=== PATIENT | male | born 2000 | race Caucasian/White ===

== ENCOUNTER 2022-03-03 16:26 | Inpatient (IN) ==
[2022-03-03 17:54] LABS: Basophils # (auto) 0.07 K/uL (0-0.2); Eosinophils # (auto) 0.12 K/uL (0-0.50); Eosinophils % (auto) 1.8 %; Hematocrit (blood only) 42.5 % (40.1-51.0); Immature Granulocytes # (auto) 0.01 K/uL (0.00-0.02); Immature Granulocytes % (auto) 0.1 %; Lymphocytes # (auto) 1.55 K/uL (1.2-3.4); Lymphocytes % (auto) 22.8 %; Mean Corpuscular Hemoglobin 30.4 pg (25.0-34.0); Mean Corpuscular Hgb Conc 35.3 g/dL (32.0-36.0); Mean Corpuscular Volume 86.2 fL (80.0-100.0); Monocytes # (auto) 0.42 K/uL (0.24-0.82); Monocytes % (auto) 6.2 %; Neutrophils # (auto) 4.62 K/uL (1.4-6.5); Neutrophils % (auto) 68.1 %; Platelet Count 352 K/uL (130-400); RDW Coefficient of Variation 12.9 % (11.5-14.5); RDW Standard Deviation 40.4 fL (36.4-46.3); Red Blood Count 4.93 M/uL (4.63-6.08); White Blood Count 6.79 K/ul (4.8-10.8)
[2022-03-03 18:12] LABS: Albumin Globulin Ratio 1.8 (0.9-2); BUN Creatinine Ratio 12.1 (10-20); Bilirubin,Total 0.8 mg/dl (0.2-1.0); Calcium 9.8 mg/dl (8.5-10.1); Est GFR (African American) 123.9 ml/min; Est GFR (Non-African American) 106.9 ml/min; Globulin 2.8 gm/dl (2.5-4.0); Potassium 3.9 mmol/L (3.5-5.1); Total Protein 7.8 gm/dl (6.0-8.3)
[2022-03-03 18:15] LABS: Acetaminophen < 3 ug/ml (10-30); Salicylate < 3.0 mg/dl (3.0-30)
--- NOTE | 2022-03-03 18:15 | Emergency Department Note ---
Impression & Plan Suicidal ideation ED Provider Note HISTORY OF PRESENT ILLNESS: Patient is a 21-year-old male presenting with suicidal ideation. He was seen by mobile crisis earlier this afternoon and had expressed suicidal ideation with a plan to shoot himself. He reportedly was going to be set up with outpatient resources. However, the patient thinks that the suicidal ideation thoughts are getting more persistent and occurring more frequently, prompting him to present to the emergency department for second opinion. He denies any homicidal ideation. He states that his plan that he has had for a while is to tie a string to a tree that will lead people to where he will be and shoot himself in the head. He reports that he has previously put a gun in his mouth "just to feel what it would feel like." He has had multiple medication changes of his antidepressant and antiemetics lytics in the last few months. He states he does not feel like his medications are helping. Denies any auditory or visual hallucinations. ROS: as above PHYSICAL EXAM: Patient is in no apparent distress on examination. He does seem withdrawn and makes poor eye contact. He has a flat affect. He does speak in full sentences and is interactive with examiner. MDM: - Vitals signs showed borderline tachycardia. - History obtained via patient. Patient presents with suicidal ideation with a plan. He wants to shoot himself in the head. He reports he does not think his medications have been working for him and "cannot get out of his head." Denies any prior suicide attempts in the past. - Chronic conditions affecting care: Anxiety and depression - Differential diagnoses include, but are not limited to: electrolyte ab normality; UTI; worsening depression - External medical records reviewed. Mobile crisis documentation reviewed. Patient was seen by mobile [facility] due to concern that his medications outpatient are not helping. He has reportedly had thoughts of wanting to shoot himself in a suicide attempt for a year but has never acted on it. He was set up with outpatient resources for his worsening depression - Laboratory workup interpreted by myself was grossly unremarkable. UA negative for infection. UDS positive for marijuana. COVID-negative. - Patient was medically cleared for inpatient psychiatric placement. 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 - Discussion was had with social sciences professor about patient's case and need for inpatient psychiatric admission. - Patient admitted to inpatient psychiatry service for further evaluation and management. ASSESSMENT AND PLAN: Diagnosis: suicidal ideation with plan Plan: admit to [address] [place] [address] Past Med/Surg History Social History Smoking Status: Current every day smoker Tobacco Type: Smokeless Tobacco (Dip or Chew) Feels Safe at Home: No Gender Identity: Male Home Meds Home Medications Medication Instructions Recorded Confirmed buspirone 30 mg tablet 30 mg PO BID 03/03/22 03/03/22 clonidine HCl 0.1 mg tablet 0.1 mg PO HS 03/03/22 03/03/22 lorazepam 0.5 mg tablet (Ativan) 0.5 mg PO BID PRN Anxiety 03/03/22 03/03/22 methylphenidate HCl 54 mg 54 mg PO QAM 03/03/22 03/03/22 tablet,extended release 24 hr (Concerta) ondansetron HCl 4 mg tablet 4 mg PO Q8H PRN Nausea 03/03/22 03/03/22 paroxetine HCl 20 mg tablet (Paxil) 20 mg PO DAILY 03/03/22 03/03/22 Results & Data (ED) Vital Signs Vital Signs - 24 hr 03/03/22 16:56 03/03/22 16:27 Temperature 36.5 C Temperature Source Temporal Artery Scan Pulse Rate 94 H Respiratory Rate 16 18 Blood Pressure 149/91 H Blood Pressure Mean 110 Pulse Oximetry 98 Oxygen Delivery Method Room Air Sepsis Recent Fever Within 48 Hours No Sepsis New/Unexplained Change in Mental Status No Sepsis Action Taken by Nursing No Action Required Laboratory Data 03/03/22 17:24 03/03/22 17:24 Lab Results 03/03/22 03/03/22 03/03/22 Range/Units 17:24 17:24 17:24 WBC 6.79 (4.8-10.8) K/ul RBC 4.93 (4.63-6.08) M/uL Hgb 15.0 (14.0-18.0) g/dl Hct 42.5 (40.1-51.0) % MCV 86.2 (80.0-100.0) fL MCH 30.4 (25.0-34.0) pg MCHC 35.3 (32.0-36.0) g/dL RDW Std Deviation 40.4 (36.4-46.3) fL RDW Coeff of Lyly 12.9 (11.5-14.5) % Plt Count 352 (130-400) K/uL MPV 9.0 L (9.4-12.4) fL Immature Gran % (Auto) 0.1 % Neut % (Auto) 68.1 % Lymph % (Auto) 22.8 % Barry % (Auto) 6.2 % Eos % (Auto) 1.8 % Baso % (Auto) 1.0 % Neut # (Auto) 4.62 (1.4-6.5) K/uL Lymph # (Auto) 1.55 (1.2-3.4) K/uL Barry # (Auto) 0.42 (0.24-0.82) K/uL Eos # (Auto) 0.12 (0-0.50) K/uL Baso # (Auto) 0.07 (0-0.2) K/uL Immature Gran # (Auto) 0.01 (0.00-0.02) K/uL Sodium 139 (136-145) mmol/L Potassium 3.9 (3.5-5.1) mmol/L Chloride 105 (98-107) mmol/L Carbon Dioxide 27 (21-32) mmol/L Anion Gap 7 (3-11) BUN 12 (6-23) mg/dl Creatinine 0.99 (0.6-1.4) mg/dl Est Cr Clr Drug Dosing 116.0 ml/min Est GFR ( Amer) 123.9 ml/min Est GFR (Non-Af Amer) 106.9 ml/min BUN/Creatinine Ratio 12.1 (10-20) Glucose 91 (70-99(Fasting)) mg/dl Calcium 9.8 (8.5-10.1) mg/dl Total Bilirubin 0.8 (0.2-1.0) mg/dl AST 19 (13-39) U/L ALT 13 (7-52) U/L Alkaline Phosphatase 52 (34-104) U/L Total Protein 7.8 (6.0-8.3) gm/dl Albumin 5.0 (3.4-5.0) gm/dl Globulin 2.8 (2.5-4.0) gm/dl Albumin/Globulin Ratio 1.8 (0.9-2) TSH 1.128 (0.300-4.500) uIu/ml Urine Color Urine Appearance (Clear) Urine pH (4.5-7.5) Ur Specific [place] (1.000-1.030) Urine Protein (Negative) Urine Glucose (UA) (Negative) Urine Ketones (Negative) Urine Blood (Negative) Urine Nitrite (Negative) Urine Bilirubin (Negative) Urine Urobilinogen (Negative) Ur Leukocyte Esterase (Negative) Urine WBC (Auto) (0-5) /hpf Urine RBC (Auto) (0-4) /hpf U Hyaline Cast (Auto) (0-5) /lpf U Epithel Cells (Auto) (0-5) /lpf Urine Bacteria (Auto) (Negative) Salicylates (3.0-30) mg/dl Urine Opiates Screen (Neg) Ur Methadone, Qual (Neg) Acetaminophen (10-30) ug/ml Urine Barbiturates (Neg) Ur Phencyclidine (PCP) (Neg) U Amphetamin/Meth Scrn (Neg) MDMA (Ecstasy) Screen (Neg) U Benzodiazepines Scrn (Neg) Ur Cocaine Metabolite (Neg) U Marijuana (THC) Screen (Neg) Ethyl Alcohol mg/dL (<10.0) mg/dl SARS-CoV-2, RNA, NAAT (NEGATIVE) 03/03/22 03/03/22 03/03/22 Range/Units 17:24 17:24 17:24 WBC (4.8-10.8) K/ul RBC (4.63-6.08) M/uL Hgb (14.0-18.0) g/dl Hct (40.1-51.0) % MCV (80.0-100.0) fL MCH (25.0-34.0) pg MCHC (32.0-36.0) g/dL RDW Std Deviation (36.4-46.3) fL RDW Coeff of Lyly (11.5-14.5) % Plt Count (130-400) K/uL MPV (9.4-12.4) fL Immature Gran % (Auto) % Neut % (Auto) % Lymph % (Auto) % Barry % (Auto) % Eos % (Auto) % Baso % (Auto) % Neut # (Auto) (1.4-6.5) K/uL Lymph # (Auto) (1.2-3.4) K/uL Barry # (Auto) (0.24-0.82) K/uL Eos # (Auto) (0-0.50) K/uL Baso # (Auto) (0-0.2) K/uL Immature Gran # (Auto) (0.00-0.02) K/uL Sodium (136-145) mmol/L Potassium (3.5-5.1) mmol/L Chloride (98-107) mmol/L Carbon Dioxide (21-32) mmol/L Anion Gap (3-11) BUN (6-23) mg/dl Creatinine (0.6-1.4) mg/dl Est Cr Clr Drug Dosing ml/min Est GFR ( Amer) ml/min Est GFR (Non-Af Amer) ml/min BUN/Creatinine Ratio (10-20) Glucose (70-99(Fasting)) mg/dl Calcium (8.5-10.1) mg/dl Total Bilirubin (0.2-1.0) mg/dl AST (13-39) U/L ALT (7-52) U/L Alkaline Phosphatase (34-104) U/L Total Protein (6.0-8.3) gm/dl Albumin (3.4-5.0) gm/dl Globulin (2.5-4.0) gm/dl Albumin/Globulin Ratio (0.9-2) TSH (0.300-4.500) uIu/ml Urine Color Urine Appearance (Clear) Urine pH (4.5-7.5) Ur Specific [place] (1.000-1.030) Urine Protein (Negative) Urine Glucose (UA) (Negative) Urine Ketones (Negative) Urine Blood (Negative) Urine Nitrite (Negative) Urine Bilirubin (Negative) Urine Urobilinogen (Negative) Ur Leukocyte Esterase (Negative) Urine WBC (Auto) (0-5) /hpf Urine RBC (Auto) (0-4) /hpf U Hyaline Cast (Auto) (0-5) /lpf U Epithel Cells (Auto) (0-5) /lpf Urine Bacteria (Auto) (Negative) Salicylates < 3.0 L (3.0-30) mg/dl Urine Opiates Screen (Neg) Ur Methadone, Qual (Neg) Acetaminophen < 3 L (10-30) ug/ml Urine Barbiturates (Neg) Ur Phencyclidine (PCP) (Neg) U Amphetamin/Meth Scrn (Neg) MDMA (Ecstasy) Screen (Neg) U Benzodiazepines Scrn (Neg) Ur Cocaine Metabolite (Neg) U Marijuana (THC) Screen (Neg) Ethyl Alcohol mg/dL < 10.0 (<10.0) mg/dl SARS-CoV-2, RNA, NAAT NEGATIVE (NEGATIVE) 03/03/22 03/03/22 Range/Units 18:01 18:01 WBC (4.8-10.8) K/ul RBC (4.63-6.08) M/uL Hgb (14.0-18.0) g/dl Hct (40.1-51.0) % MCV (80.0-100.0) fL MCH (25.0-34.0) pg MCHC (32.0-36.0) g/dL RDW Std Deviation (36.4-46.3) fL RDW Coeff of Lyly (11.5-14.5) % Plt Count (130-400) K/uL MPV (9.4-12.4) fL Immature Gran % (Auto) % Neut % (Auto) % Lymph % (Auto) % Barry % (Auto) % Eos % (Auto) % Baso % (Auto) % Neut # (Auto) (1.4-6.5) K/uL Lymph # (Auto) (1.2-3.4) K/uL Barry # (Auto) (0.24-0.82) K/uL Eos # (Auto) (0-0.50) K/uL Baso # (Auto) (0-0.2) K/uL Immature Gran # (Auto) (0.00-0.02) K/uL Sodium (136-145) mmol/L Potassium (3.5-5.1) mmol/L Chloride (98-107) mmol/L Carbon Dioxide (21-32) mmol/L Anion Gap (3-11) BUN (6-23) mg/dl Creatinine (0.6-1.4) mg/dl Est Cr Clr Drug Dosing ml/min Est GFR ( Amer) ml/min Est GFR (Non-Af Amer) ml/min BUN/Creatinine Ratio (10-20) Glucose (70-99(Fasting)) mg/dl Calcium (8.5-10.1) mg/dl Total Bilirubin (0.2-1.0) mg/dl AST (13-39) U/L ALT (7-52) U/L Alkaline Phosphatase (34-104) U/L Total Protein (6.0-8.3) gm/dl Albumin (3.4-5.0) gm/dl Globulin (2.5-4.0) gm/dl Albumin/Globulin Ratio (0.9-2) TSH (0.300-4.500) uIu/ml Urine Color Yellow Urine Appearance Clear (Clear) Urine pH 6.0 (4.5-7.5) Ur Specific [place] 1.012 (1.000-1.030) Urine Protein Negative (Negative) Urine Glucose (UA) Negative (Negative) Urine Ketones Negative (Negative) Urine Blood Trace H (Negative) Urine Nitrite Negative (Negative) Urine Bilirubin Negative (Negative) Urine Urobilinogen Negative (Negative) Ur Leukocyte Esterase Negative (Negative) Urine WBC (Auto) 1-5 (0-5) /hpf Urine RBC (Auto) 0-4 (0-4) /hpf U Hyaline Cast (Auto) 0 (0-5) /lpf U Epithel Cells (Auto) 0-5 (0-5) /lpf Urine Bacteria (Auto) Negative (Negative) Salicylates (3.0-30) mg/dl Urine Opiates Screen Neg (Neg) Ur Methadone, Qual Neg (Neg) Acetaminophen (10-30) ug/ml Urine Barbiturates Neg (Neg) Ur Phencyclidine (PCP) Neg (Neg) U Amphetamin/Meth Scrn Neg (Neg) MDMA (Ecstasy) Screen Neg (Neg) U Benzodiazepines Scrn Neg (Neg) Ur Cocaine Metabolite Neg (Neg) U Marijuana (THC) Screen Pos H (Neg) Ethyl Alcohol mg/dL (<10.0) mg/dl SARS-CoV-2, RNA, NAAT (NEGATIVE) Discharge Plan Visit Data Chief Complaint: Mental Health Evaluation Stated Complaint: M[facility]AL HEALTH [facility] ED Provider: Sera Rajput Discharge Problem: Suicidal ideation Patient Disposition: Still a Patient Forms Stand Alone Forms: My [facility], Suicide Prevention Resources Prescriptions Prescriptions: No Action clonidine HCl 0.1 mg Tablet 0.1 mg PO HS ondansetron HCl [Zofran] 4 mg Tablet 4 mg PO Q8H PRN (Reason: Nausea) methylphenidate HCl [Concerta] 54 mg Tablet Extended Release 24hr 54 mg PO QAM lorazepam [Ativan] 0.5 mg Tablet 0.5 mg PO BID PRN (Reason: Anxiety) paroxetine HCl [Paxil] 20 mg Tablet 20 mg PO DAILY buspirone [BuSpar] 30 mg Tablet 30 mg PO BID Referrals Referrals: PCP,NO [Primary Care Provider] -
[2022-03-03 18:36] LABS: Appearance Urine Clear (Clear); Bacteria Urine Automated Negative (Negative); Bilirubin Urine Negative (Negative); Blood Urine Trace (Negative); Cast Urine Automated 0 /lpf (0-5); Color Urine Yellow; Epithelial Cell Urine Auto 0-5 /lpf (0-5); Glucose Urine UA Negative (Negative); Ketones Urine Negative (Negative); Leukocyte Esterase Urine Negative (Negative); Nitrite Urine Negative (Negative); Protein Urine Negative (Negative); RBC Urine Automated 0-4 /hpf (0-4); Specific Gravity Urine 1.012 (1.000-1.030); Urobilinogen Urine Negative (Negative)
[2022-03-03 19:34] LABS: Amphetamines+Metham, Urine Neg (Neg); Barbiturates, Urine Neg (Neg); Benzodiazepine, Urine Neg (Neg); Cocaine, Urine Neg (Neg); MDMA (Ecstacy), Urine Neg (Neg); Methadone, Urine Neg (Neg); Opiate, Urine Neg (Neg); Phencyclidine, Urine Neg (Neg)
[2022-03-03] MEDS ORDERED: hydrOXYzine HCl 25 MG TAB PO PRN ×2 (20:35)
[2022-03-03] MEDS ORDERED: BISMUTH SUBSALICYLATE LIQD 236 ML PO PRN (20:35)
[2022-03-03] MEDS ORDERED: ALUMINUM/MAGNESIUM SUSP 30 ML UDC PO PRN (20:35)
[2022-03-03] MEDS ORDERED: ACETAMINOPHEN 325 MG TAB PO PRN (20:35)
[2022-03-03] MEDS ORDERED: MAGNESIUM HYDROXIDE SUSP 30 ML UDC PO PRN (20:35)
[2022-03-03] MEDS ORDERED: SODIUM CHLORIDE 0.65% NA SOLN 45 ML (OCEAN) PRN (20:35)
[2022-03-03] MEDS: NICOTINE POLACRILEX 2 MG GUM MT PRN (21:03)
[2022-03-04] MEDS: NICOTINE 14 MG/24 HR PATCH TD SCH (09:40)
[2022-03-04] MEDS ORDERED: METHYLPHENIDATE HCL 10 MG TABLET ONE (10:27)
[2022-03-04] MEDS ORDERED: LORazepam 1 MG TAB ONE (10:27)
[2022-03-04] MEDS: NICOTINE POLACRILEX 2 MG GUM MT PRN ×3 (10:30→19:16)
[2022-03-04] MEDS ORDERED: busPIRone 15 MG TAB PO ONE (13:30)
[2022-03-04] MEDS ORDERED: LORazepam 0.5 MG TAB PO PRN (14:21)
--- NOTE | 2022-03-04 14:21 | History & Physical ---
Date of Service March 04, 2022 Impression / Recommendations Impression 21 yo male with no prior history of suicide attempts presented to ED with SI with rather unusual plan to shoot self. Hx of placing gun in mouth (impulsive). Longstanding rx for stimulants for ADHD. Admitted to more depressive symptoms and anxiety past few months resulting in increase in MJ use, last use 1 week by report. Increase in MJ use coincides with abdominal pain and decreased appetite suggesting likely atypical presentation of pot hyperemesis syndrome. Patient also seems to report some form of activation from serotonergic agents or discontinuation syndrome from stimulants. Need to obtain collateral re: developmental history and social skills as cannot exclude autism spectrum disorder based on today's assessment. As symptoms worse in the setting of high dose Buspar with titration of Paxil, given significantly lower dose of Buspar with plan to taper. If symptoms persist would taper/hold Paxil. Does not appear manic on exam. (1) Suicidal ideation: (2) Anxiety: (3) Abdominal pain: (4) Cannabis use with anxiety disorder: Plan The patient was admitted to the [facility] ([facility] mental [facility]) on q15 min checks (behavioral with suicide precautions) for safety. The patient will participate in group, recreational, and milieu therapies and will be offered additional individual and family sessions as clinically appropriate. Responded well to am meds, will repeat this afternoon with plan to taper Ativan. Consider taper Buspar in favor of trial of Paxil but Paxil typically not main SSRI used in adolescents and young adults given FDA black box SI warnings. Will defer to Dr. Cadet for a 2nd opinion. Doubt that abdominal pain is related to stimulants. will offer capsaicin as a trial prn in case MJ related and should be resolving. Patient is rather coy about his amount of use. No evidence of psychosis, girlfriend is providing non-formulary Concerta for tomorrow am. He confirms no hx of cardiac issues or seizure. Inventory Assets Strengths: employed, utilizes community supports Needs: improve coping, aftercare planning Suicide Risk Level Suicide Risk Level: High-Moderate (q15 min suicide checks) Risk Factors Assessment Male: Yes : Yes Do You Have Access To A Gun?: Yes (did in past and need to assume until confirm) Mental Health Diagnoses: Yes Previous Psychiatric Hospitalization: No Protective Factors Assessment Employed: Yes ([employer]) Stable Relationships: Yes Supportive Family: Yes Psychiatric History Identifying Data SMITHA CADET is a 21-year-old M who currently lives in [place], and was admitted on 03/03/22 20:58 on a 201 voluntary commitment for SI with plan. Chief Complaint "I don't feel right, can't explain it". History of Present Illness Patient was initially seen in the am and couldn't tolerate much of an interview. He had difficulty completing a thought and eyes were darting around the room. He received 1 dose of Ativan 0.5 mg, Ritalin 10 mg (lower dose replacement for Co ncerta), and Buspar 15 mg (on Buspar 30 mg am and approximately 3 pm before work at baseline). He was then able to join group and interact more appropriately for an interview. He admits to regular use of MJ, very non specific about amount of flower/vapes/THC content. He did not necessarily attribute MJ use to nausea but has been experiencing vague abdominal aches for 1 month with poor appetite. He attributed some of this to anxiety but did receive an rx for Zofran. He states he is unsure if he was vomiting or if the symptoms were relieved by a hot shower but states "that sounds right." The patient came to the ED after an earlier contact with either his prescriber's office or crisis stating that he had worsening of his SI and fears he would follow through on his previous plan to tie guadalupe to a tree so police would find him when he shoots self. Several years ago he put a gun in his mouth to see "what it would feel like." He seems hyperfocused and has a history of not taking them exactly as prescribed. His girlfriend/fiance apparently expressed some concern about dependence on Ativan and/or Concerta. He seems to describe some physiologic dependence on Concerta as feels in mental fog for a week if he didn't take. His use of Ativan given rx of stimulant and MJ was addressed prior to his admission and he actually wants to be tapered. His depressive symptoms have included low energy, appetite issues as above and crying spells. He feels jittery at times with racing thoughts at night with muscle tension. He has periods where he spends more time cleaning so family expressed some concern about manic symptoms. 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 He denies any history of psychotic symptoms. Past Psychiatric History Current Psychiatric Diagnosis: MDD Outpatient Services: [facility] presc[facility], has done therapy/uses grounding techniques (chewing gum, feeling the textures of his clothes on his body) as coping skills Previous Psych Admissions: none Do You Have Access To A Gun?: Yes (did in past and need to assume until confirm) History of Previous Suicide Attempt: No Past Medication Trials: per surescripts: Seroquel (recent prn for anxiety, too sedating), Paxil increased recently to 20 mg, Pristiq (?auth issue, not clear if took), Adderall XR, Adderall, Ritalin, Concerta, propranolol, clonidine, Trileptal, topamax, Celexa, Lamictal. Allergies Allergy/AdvReac Type Severity Reaction Status Date / Time No Known Allergies Allergy Unverified 03/03/22 23:41 Home Medications Medication Instructions Recorded Confirmed Type buspirone 30 mg tablet 30 mg PO BID 03/03/22 03/03/22 History lorazepam 0.5 mg tablet (Ativan) 0.5 mg PO BID PRN Anxiety 03/03/22 03/03/22 History methylphenidate HCl 54 mg 54 mg PO QAM 03/03/22 03/03/22 History tablet,extended release 24 hr (Concerta) ondansetron HCl 4 mg tablet 4 mg PO Q8H PRN Nausea 03/03/22 03/03/22 History paroxetine HCl 20 mg tablet (Paxil) 20 mg PO DAILY 03/03/22 03/03/22 History quetiapine 25 mg tablet 25 mg PO BID PRN anxiety/sleep 03/04/22 03/04/22 History Family History Family History of: Depression Alcohol History Hx of Alcohol Use Over the Past 12 Months: No AUDIT Total Score: 0 Smoking Use Have You Smoked or Used Tobacco Products in the Last 30 Days: Yes tobacco type: smokeless tobacco Smoking Status: Current every day smoker Smoking packs per day: 20 Substance History Hx of Prescription Med Misuse Over the Past 12 Months: No Hx of Over the Counter Med Misuse Over the Past 12 Months: No Hx of Inhalent Misuse Over the Past 12 Months: No Hx of Organic Substance Use Over the Past 12 Months: Yes (marijuana, quit 1.5 weeks ago.) Hx of Illegal Substances/Street Drug Use Over Past 12 Months: No Problems as a Result of Past Substance Use: None Identified Personal History Living Arrangements: Home Highest Grade Completed: College 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 Other Number Of Children: 0 Beliefs That Will Affect Care: None Current Legal Problems: No Hx Traumatic Life Events: No (denied) Patient History Medical History (Updated 03/04/22 @ 14:55 by Jen Corea MD) ADHD No active medical problems Social History Smoking Status: Current every day smoker Tobacco Type: Smokeless Tobacco (Dip or Chew) Preferred Language: Kazakh Communication Ability: Effective Personnel Monitor Required: No Beliefs That Will Affect Care: None Feels Safe at Home: Yes Gender Identity: Male Assistive Devices: None Review of Systems Review of Systems: All systems reviewed & are unremarkable except as noted in HPI & below Physical Exam Psychiatric: Orientation: alert and oriented x 3 Apperance: appropriately dressed and appropriately groomed Eye Contact: good eye contact Motor Behavior: no abnormal motor movements Speech: normal rate/rhythm/volume of speech Affect: + anxious affect Mood: + depressed mood Thought Process: + concrete thought process Thought Content: reality based without delusions Suicidal Thoughts: + reports suicidal thoughts (intermittent, passive, unable to safety plan) Homicidal Thoughts: denies homicidal thoughts Hallucinations: no auditory hallucinations and no visual hallucinations Cognition: language grossly intact; + attention not intact Insight: + limited insight Judgement: + limited judgement Vital Signs (Past 24 Hours): Last Vital Signs Temp 36.7 C 03/04/22 06:36 Pulse 62 03/04/22 06:36 Resp 16 03/04/22 06:36 BP 113/74 03/04/22 06:36 Pulse Ox 99 03/03/22 21:08 O2 Del Method 03/03/22 21:08 Constitutional: cooperative, no acute distress, healthy appearing Eyes: PERRLA ENMT: oropharynx clear Neck: supple Respiratory: CTA bilaterally Cardiovascular: no murmurs appreciated, split S2 Gastrointestinal (Abdomen): soft, non tender, non distended, active bowel sounds Musculoskeletal: gait steady without assist, normal muscle tone/bulk Skin: clean/dry Neurologic: CNII-XII appear intact, nl strength Exam Statement: medical clearance performed in ED by Dr. Polinski, limited exam documented at this time. Results & Data ([facility]) Laboratory Results Laboratory Results - last 24 hr 03/03/22 03/03/22 03/03/22 17:24 17:24 17:24 WBC 6.79 RBC 4.93 Hgb 15.0 Hct 42.5 MCV 86.2 MCH 30.4 MCHC 35.3 RDW Std Deviation 40.4 RDW Coeff of Lyly 12.9 Plt Count 352 MPV 9.0 L Immature Gran % (Auto) 0.1 Neut % (Auto) 68.1 Lymph % (Auto) 22.8 Bryan % (Auto) 6.2 Eos % (Auto) 1.8 Baso % (Auto) 1.0 Neut # (Auto) 4.62 Lymph # (Auto) 1.55 Bryan # (Auto) 0.42 Eos # (Auto) 0.12 Baso # (Auto) 0.07 Immature Gran # (Auto) 0.01 Sodium 139 Potassium 3.9 Chloride 105 Carbon Dioxide 27 Anion Gap 7 BUN 12 Creatinine 0.99 Est Cr Clr Drug Dosing 116.0 Est GFR ( Amer) 123.9 Est GFR (Non-Af Amer) 106.9 BUN/Creatinine Ratio 12.1 Glucose 91 Calcium 9.8 Total Bilirubin 0.8 AST 19 ALT 13 Alkaline Phosphatase 52 Total Protein 7.8 Albumin 5.0 Globulin 2.8 Albumin/Globulin Ratio 1.8 TSH 1.128 Urine Color Urine Appearance Urine pH Ur Specific Kersey Urine Protein Urine Glucose (UA) Urine Ketones Urine Blood Urine Nitrite Urine Bilirubin Urine Urobilinogen Ur Leukocyte Esterase Urine WBC (Auto) Urine RBC (Auto) U Hyaline Cast (Auto) U Epithel Cells (Auto) Urine Bacteria (Auto) Salicylates Urine Opiates Screen Ur Methadone, Qual Acetaminophen Urine Barbiturates Ur Phencyclidine (PCP) U Amphetamin/Meth Scrn MDMA (Ecstasy) Screen U Benzodiazepines Scrn Ur Cocaine Metabolite U Marijuana (THC) Screen U Marijuana THC Carboxy Drug Screen Comment Ethyl Alcohol mg/dL SARS-CoV-2, RNA, NAAT 03/03/22 03/03/22 03/03/22 17:24 17:24 17:24 WBC RBC Hgb Hct MCV MCH MCHC RDW Std Deviation RDW Coeff of Lyly Plt Count MPV Immature Gran % (Auto) Neut % (Auto) Lymph % (Auto) Bryan % (Auto) Eos % (Auto) Baso % (Auto) Neut # (Auto) Lymph # (Auto) Bryan # (Auto) Eos # (Auto) Baso # (Auto) Immature Gran # (Auto) Sodium Potassium Chloride Carbon Dioxide Anion Gap BUN Creatinine Est Cr Clr Drug Dosing Est GFR ( Amer) Est GFR (Non-Af Amer) BUN/Creatinine Ratio Glucose Calcium Total Bilirubin AST ALT Alkaline Phosphatase Total Protein Albumin Globulin Albumin/Globulin Ratio TSH Urine Color Urine Appearance Urine pH Ur Specific Kersey Urine Protein Urine Glucose (UA) Urine Ketones Urine Blood Urine Nitrite Urine Bilirubin Urine Urobilinogen Ur Leukocyte Esterase Urine WBC (Auto) Urine RBC (Auto) U Hyaline Cast (Auto) U Epithel Cells (Auto) Urine Bacteria (Auto) Salicylates < 3.0 L Urine Opiates Screen Ur Methadone, Qual Acetaminophen < 3 L Urine Barbiturates Ur Phencyclidine (PCP) U Amphetamin/Meth Scrn MDMA (Ecstasy) Screen U Benzodiazepines Scrn Ur Cocaine Metabolite U Marijuana (THC) Screen U Marijuana THC Carboxy Drug Screen Comment Ethyl Alcohol mg/dL < 10.0 SARS-CoV-2, RNA, NAAT NEGATIVE 03/03/22 03/03/22 03/03/22 18:01 18:01 18:01 WBC RBC Hgb Hct MCV MCH MCHC RDW Std Deviation RDW Coeff of Lyly Plt Count MPV Immature Gran % (Auto) Neut % (Auto) Lymph % (Auto) Bryan % (Auto) Eos % (Auto) Baso % (Auto) Neut # (Auto) Lymph # (Auto) Bryan # (Auto) Eos # (Auto) Baso # (Auto) Immature Gran # (Auto) Sodium Potassium Chloride Carbon Dioxide Anion Gap BUN Creatinine Est Cr Clr Drug Dosing Est GFR ( Amer) Est GFR (Non-Af Amer) BUN/Creatinine Ratio Glucose Calcium Total Bilirubin AST ALT Alkaline Phosphatase Total Protein Albumin Globulin Albumin/Globulin Ratio TSH Urine Color Yellow Urine Appearance Clear Urine pH 6.0 Ur Specific Kersey 1.012 Urine Protein Negative Urine Glucose (UA) Negative Urine Ketones Negative Urine Blood Trace H Urine Nitrite Negative Urine Bilirubin Negative Urine Urobilinogen Negative Ur Leukocyte Esterase Negative Urine WBC (Auto) 1-5 Urine RBC (Auto) 0-4 U Hyaline Cast (Auto) 0 U Epithel Cells (Auto) 0-5 Urine Bacteria (Auto) Negative Salicylates Urine Opiates Screen Neg Ur Methadone, Qual Neg Acetaminophen Urine Barbiturates Neg Ur Phencyclidine (PCP) Neg U Amphetamin/Meth Scrn Neg MDMA (Ecstasy) Screen Neg U Benzodiazepines Scrn Neg Ur Cocaine Metabolite Neg U Marijuana (THC) Screen Pos H U Marijuana THC Carboxy Pending Drug Screen Comment Pending Ethyl Alcohol mg/dL SARS-CoV-2, RNA, NAAT Current Inpatient Medications Current Inpatient Medications: Current Inpatient Medications Acetaminophen (Acetaminophen 325 Mg Tab) 650 mg PO Q4H PRN PRN Reason: Headache or Minor Fever Stop: 04/02/22 20:34 Al Hydrox/Mg Hydrox/Simethicone (Aluminum/Magnesium Susp 30 Ml Udc) 30 ml PO Q4H PRN PRN Reason: GI Upset Stop: 04/02/22 20:34 Bismuth Subsalicylate (Bismuth Subsalicylate Liqd 236 Ml) 15 ml PO PRN PRN PRN Reason: Loose Stool Stop: 04/02/22 20:34 Hydroxyzine HCl (Hydroxyzine Hcl 25 Mg Tab) 50 mg PO HSZ PRN PRN Reason: Insomnia Stop: 04/02/22 20:34 Hydroxyzine HCl (Hydroxyzine Hcl 25 Mg Tab) 25 mg PO Q4H PRN PRN Reason: Anxiety Stop: 04/02/22 20:34 Magnesium Hydroxide (Magnesium Hydroxide Susp 30 Ml Udc) 30 ml PO DAILY PRN PRN Reason: Constipation Stop: 04/02/22 20:34 Miscellaneous (Remove Nicoderm Patch) 1 each N/A DAILY@0859 [facility] Stop: 04/03/22 08:58 Last Admin: 03/04/22 11:27 Dose: Not Given Nicotine (Nicotine 14 Mg/24 Hr Patch) 14 mg TD QAM [facility] Stop: 04/03/22 08:59 Last Admin: 03/04/22 09:40 Dose: 14 mg Nicotine Polacrilex (Nicotine Polacrilex 2 Mg Gum) 2 piece MT PRN PRN PRN Reason: Nicotine Withdrawal Stop: 04/02/22 20:34 Last Admin: 03/04/22 10:30 Dose: 2 piece Sodium Chloride (Sodium Chloride 0.65% Na Soln 45 Ml ([place])) 1 - 2 sprays NA PRN PRN PRN Reason: Nasal Dryness/Congestion Stop: 04/02/22 20:34
[2022-03-04] MEDS ORDERED: CAPSAICIN CR 0.075% 60 GM TUBE EXT PRN (14:23)
[2022-03-04] MEDS ORDERED: METHYLPHENIDATE HCL 10 MG TABLET PO ONE (14:30)
[2022-03-04] MEDS ORDERED: CONCERTA~ORDER AWAITING ACTION SCH (14:45)
[2022-03-04] MEDS ORDERED: busPIRone 15 MG TAB PO SCH (21:00)
[2022-03-05] MEDS ORDERED: METHYLPHENIDATE HCL 54 MG PO SCH (09:00)
[2022-03-05] MEDS ORDERED: PARoxetine HCL 20 MG TAB PO SCH (09:00)
[2022-03-05] MEDS ORDERED: CONCERTA 54 MG PO SCH (09:00)
[2022-03-05] MEDS: busPIRone 15 MG TAB PO SCH ×3 (09:08→20:21)
[2022-03-05] MEDS: NICOTINE 14 MG/24 HR PATCH TD SCH (09:15)
[2022-03-05] MEDS: NICOTINE POLACRILEX 2 MG GUM MT PRN ×3 (09:19→17:28)
[2022-03-05] MEDS ORDERED: ACETAMINOPHEN 325 MG TAB PO PRN (19:03)
[2022-03-05] MEDS ORDERED: BISMUTH SUBSALICYLATE LIQD 236 ML PO PRN (19:03)
[2022-03-05] MEDS ORDERED: MAGNESIUM HYDROXIDE SUSP 30 ML UDC PO PRN (19:03)
[2022-03-05] MEDS ORDERED: hydrOXYzine HCl 25 MG TAB PO PRN ×2 (19:03)
[2022-03-05] MEDS ORDERED: SODIUM CHLORIDE 0.65% NA SOLN 45 ML (OCEAN) PRN (19:03)
[2022-03-05] MEDS ORDERED: ALUMINUM/MAGNESIUM SUSP 30 ML UDC PO PRN (19:03)
--- NOTE | 2022-03-05 19:11 | Psychiatric Progress Note ---
Date of Service March 05, 2022 Impression / Recommendations Impression 03/05/22: Start cautious trial of clonidine 0.1 mg PO daily, primarily targeting anxiety and panic, secondarily ADHD. Anticipate initiation of slow titration of duloxetine from 10 mg to 40 mg daily in 10 mg increments Will d/c buspirone due to lack of benefit and possibility that it may have contributed to pt's suicidality; d/c methylphenidate due to propensity to exacerbate anxiety; initiate paroxetine taper due to lack of perceived benefit and pt's report of suicidality with other SSRI's (1) Suicidal ideation: (2) Abdominal pain: (3) Cannabis use with anxiety disorder: (4) Panic disorder: (5) ADHD: (6) JEANETTE (generalized anxiety disorder): Suicide Risk Level Suicide Risk Level: Moderate (q15 min suicide checks) Risk Factors Assessment Male: Yes : Yes Do You Have Access To A Gun?: Yes (did in past and need to assume until confirm) Mental Health Diagnoses: Yes Previous Attempt: No Previous Psychiatric Hospitalization: No Protective Factors Assessment Employed: Yes ([employer]) Stable Relationships: Yes Supportive Family: Yes Interval History Identifying Information 21 year-old man with history of ADHD, depressed mood, and panic who presented with intrusive suicidal thoughts with a plan of high potential lethality Chief Complaint "Things got beyond me". Review of Systems Sleep Information Total Hours of Sleep: 6.5 Meal Information Percent Meal Consumed - Breakfast: 5 Percent Meal Consumed - Lunch: 0 Percent Meal Consumed - Dinner: 50 Nutrition Comment: pt. declines lunch; meal dated. lableled and refrigerated. Pt. requests/receives soda from his locker Subjective Subjective Patient was seen & assessed and interval progress reviewed with treatment team nursing and social work. I think we have to consider OCD or variant as a possibility given pt's preoccupations, overvalued ideas. Since the majority of medications effective for OCD are also used for panic, this may not materially affect treatment choice. He seems likely to be at high risk of (at least subjective) adverse medication reactions so "start low, go slow" approaches are likely necessary. While it's very unlikely that he'd acheive therapeutic doses during a hospital stay, I spoke with him in detail about a trial of duloxetine (that would likely require 2 months of dose titration) or clonidine. Medication Trials Pt reports multiple trials of SSRI's (though he can't recall names of specific ones) over the years that appeared to precipitate suicidality and to exacerbate anxiety by making him feel "weird". He has been on methlyphenidate in various forms for years. Recognizes that it tend to make him more anxious though it does help with focus. He notes no benefit with buspirone 60 mg/day (though in suboptimal BID dosing rather than TID). Cites quetiapine as one of the most helpful things he's tried for anxiety, though it is extremely sedating even at 12.5 mg dose. Has never had trial of SNRI, centrally-acting alpha-1 agonist. Physical Exam Psychiatric THere is a distinct obsessive quality to pt's reports, or at least overvalued ideas. He attributes significance to seemingly minor or even trivial things. He appears to see as natural associations that elude me (e.g., feeling panicky about his fiancee specifically because he's panicky about driving to work). Orientation: alert and oriented x 3 Apperance: appropriately dressed and appropriately groomed Eye Contact: good eye contact Motor Behavior: no abnormal motor movements Speech: normal rate/rhythm/volume of speech Affect: + anxious affect Mood: + depressed mood Thought Process: + concrete thought process Thought Content: + preoccupation and reality based without delusions Suicidal Thoughts: + reports suicidal thoughts (intermittent, passive, unable to safety plan) Homicidal Thoughts: denies homicidal thoughts Hallucinations: no auditory hallucinations and no visual hallucinations Cognition: language grossly intact; + attention not intact Insight: + limited insight Judgement: + limited judgement Vital Signs (Past 24 Hours) Last Vital Signs Temp 36.7 C 03/05/22 06:34 Pulse 101 H 03/05/22 06:37 Resp 18 03/05/22 06:34 BP 125/68 03/05/22 06:37 Pulse Ox 99 03/03/22 21:08 O2 Del Method 03/03/22 21:08 Results & Data ([facility]) Current Inpatient Medications Current Inpatient Medications: Current Inpatient Medications Acetaminophen (Acetaminophen 325 Mg Tab) 650 mg PO Q4H PRN PRN Reason: Headache or Minor Fever Stop: 04/04/22 19:02 Al Hydrox/Mg Hydrox/Simethicone (Aluminum/Magnesium Susp 30 Ml Udc) 30 ml PO Q4H PRN PRN Reason: GI Upset Stop: 04/04/22 19:02 Bismuth Subsalicylate (Bismuth Subsalicylate Liqd 236 Ml) 15 ml PO PRN PRN PRN Reason: Loose Stool Stop: 04/04/22 19:02 Buspirone HCl (Buspirone 15 Mg Tab) 15 mg PO DAILY@0900,1500 [facility] Stop: 04/03/22 20:59 Last Admin: 03/05/22 09:08 Dose: 15 mg Capsaicin (Capsaicin Cr 0.075% 60 Gm Tube) 1 appln EXT BID PRN PRN Reason: abdominal pain Stop: 04/03/22 14:22 Clonidine HCl (Clonidine Hcl 0.1 Mg Tab) 0.1 mg PO QAM [facility] Stop: 04/04/22 19:14 Hydroxyzine HCl (Hydroxyzine Hcl 25 Mg Tab) 50 mg PO HSZ PRN PRN Reason: Insomnia Stop: 04/04/22 19:02 Hydroxyzine HCl (Hydroxyzine Hcl 25 Mg Tab) 25 mg PO Q4H PRN PRN Reason: Anxiety Stop: 04/04/22 19:02 Lorazepam (Lorazepam 0.5 Mg Tab) 0.5 mg PO Q6 PRN PRN Reason: Anxiety Stop: 04/03/22 17:59 Last Admin: 03/05/22 15:44 Dose: 0.5 mg Magnesium Hydroxide (Magnesium Hydroxide Susp 30 Ml Udc) 30 ml PO DAILY PRN PRN Reason: Constipation Stop: 04/04/22 19:02 Methylphenidate HCl (Methylphenidate Hcl Er 54 Mg) [facility] Protocol Stop: 04/04/22 08:59 Last Admin: 03/05/22 09:08 Dose: 1 each Miscellaneous (Remove Nicoderm Patch) 1 each N/A DAILY@0859 [facility] Stop: 04/03/22 08:58 Last Admin: 03/05/22 09:17 Dose: Not Given Nicotine (Nicotine 14 Mg/24 Hr Patch) 14 mg [facility] Stop: 04/03/22 08:59 Last Admin: 03/05/22 09:15 Dose: 14 mg Nicotine Polacrilex (Nicotine Polacrilex 2 Mg Gum) 2 piece MT PRN PRN PRN Reason: Nicotine Withdrawal Stop: 04/02/22 20:34 Last Admin: 03/05/22 17:28 Dose: 2 piece Concerta Er 54 Mg: Patient's Own Controlled Med 1 1 each PO QAM [facility] Stop: 03/19/22 08:59 Last Admin: 03/05/22 09:22 Dose: Not Given Paroxetine HCl (Paroxetine Hcl 20 Mg Tab) 20 mg PO DAILY [facility] Stop: 04/04/22 08:59 Last Admin: 03/05/22 09:09 Dose: 20 mg Sodium Chloride (Sodium Chloride 0.65% Na Soln 45 Ml ([place])) 1 - 2 sprays NA PRN PRN PRN Reason: Nasal Dryness/Congestion Stop: 04/04/22 19:02 Mental Health & Subst Abuse Tx Psychiatrist Name of Psychiatrist: Tomas Paniagua Psychiatrist's Date Of Appointment With Psychiatric Provider: 03/27/2022 Time of Appointment with Psychiatrist: 11:30am Psychiatric Appointment Comment: telehealth Therapist Name of Therapist: Tomas Vaz Therapist's Date of Therapist Appointment: 03/09/22 Time of Therapist Appointment: 11:30am Therapy Appointment Comment: telehealth Post Discharge Appointments Contact Information Discharge Discharge Address: [address] [place], [place] [address]tow[place]UC[place] campos [id number]
[2022-03-05] MEDS: cloNIDine HCL 0.1 MG TAB PO SCH (19:31)
[2022-03-06] MEDS: cloNIDine HCL 0.1 MG TAB PO SCH (09:23)
[2022-03-06] MEDS: PARoxetine HCL 10 MG TAB PO SCH (09:24)
[2022-03-06] MEDS: NICOTINE 14 MG/24 HR PATCH TD SCH (09:24)
[2022-03-06 11:22] LABS: Marijuana Quant, GCMS Urine 470 ng/mL (<5)
--- NOTE | 2022-03-06 18:34 | Psychiatric Progress Note ---
Date of Service March 06, 2022 Impression / Recommendations Impression Less overwhelmed today, more able to stay on-track during exam. Reviewed his positive response to clonidine, which abbreviated the panic he'd started last night and to which he attributes no side effects. Discussed at some length the possibility that this one medication could be effective for panic and ADHD, though certainly not for depression. (1) Suicidal ideation: (2) Abdominal pain: (3) Cannabis use with anxiety disorder: (4) Panic disorder: (5) ADHD: (6) JEANETTE (generalized anxiety disorder): Plan 03/06/22: Continue clonidine 0.1 mg BID. Anticipate d/c paroxeting tomorrow. After discussion, pt decided not to pursue duloxetine trial and to focus on clonidine for now 03/05/22: Start cautious trial of clonidine 0.1 mg PO daily, primarily targeting anxiety and panic, secondarily ADHD. Anticipate initiation of slow titration of duloxetine from 10 mg to 40 mg daily in 10 mg increments Will d/c buspirone due to lack of benefit and possibility that it may have contributed to pt's suicidality; d/c methylphenidate due to propensity to exacerbate anxiety; initiate paroxetine taper due to lack of perceived benefit and pt's report of suicidality with other SSRI's Suicide Risk Level Suicide Risk Level: Moderate (q15 min suicide checks) Risk Factors Assessment Male: Yes : Yes Do You Have Access To A Gun?: Yes (did in past and need to assume until confirm) Mental Health Diagnoses: Yes Previous Attempt: No Previous Psychiatric Hospitalization: No Protective Factors Assessment Employed: Yes ([employer]) Stable Relationships: Yes Supportive Family: Yes Interval History Identifying Information 21 year-old man with history of ADHD, depressed mood, and panic who presented with intrusive suicidal thoughts with a plan of high potential lethality Chief Complaint "I feel clearer". Review of Systems Sleep Information Total Hours of Sleep: 8.75 Meal Information Percent Meal Consumed - Breakfast: 25 Percent Meal Consumed - Lunch: 100 Percent Meal Consumed - Dinner: 70 Nutrition Comment: pt. declines lunch; meal dated. lableled and refrigerated. Pt. requests/receives soda from his locker Medication Trials Pt reports multiple trials of SSRI's (though he can't recall names of specific ones) over the years that appeared to precipitate suicidality and to exacerbate anxiety by making him feel "weird". He has been on methlyphenidate in various forms for years. Recognizes that it tend to make him more anxious though it does help with focus. He notes no benefit with buspirone 60 mg/day (though in suboptimal BID dosing rather than TID). Cites quetiapine as one of the most helpful things he's tried for anxiety, though it is extremely sedating even at 12.5 mg dose. Has never had trial of SNRI, centrally-acting alpha-1 agonist. Subjective Subjective Patient was seen & assessed and interval progress reviewed with treatment team nursing and social work Medication Trials Pt reports multiple trials of SSRI's (though he can't recall names of specific ones) over the years that appeared to precipitate suicidality and to exacerbate anxiety by making him feel "weird". He has been on methlyphenidate in various forms for years. Recognizes that it tend to make him more anxious though it does help with focus. He notes no benefit with buspirone 60 mg/day (though in suboptimal BID dosing rather than TID). Cites quetiapine as one of the most helpful things he's tried for anxiety, though it is extremely sedating even at 12.5 mg dose. Has never had trial of SNRI, centrally-acting alpha-1 agonist. Physical Exam Psychiatric Orientation: alert and oriented x 3 Apperance: appropriately dressed and appropriately groomed Eye Contact: good eye contact Motor Behavior: no abnormal motor movements Speech: normal rate/rhythm/volume of speech Affect: + anxious affect Mood: + depressed mood Thought Process: + concrete thought process Thought Content: + preoccupation and reality based without delusions Suicidal Thoughts: denies suicidal thoughts Homicidal Thoughts: denies homicidal thoughts Hallucinations: no auditory hallucinations and no visual hallucinations Cognition: language grossly intact; + attention not intact Insight: + limited insight Judgement: + limited judgement Vital Signs (Past 24 Hours) Last Vital Signs Temp 36.6 C 03/06/22 06:36 Pulse 60 03/06/22 06:36 Resp 16 03/06/22 06:36 BP 102/67 03/06/22 06:36 Pulse Ox 97 03/05/22 20:30 O2 Del Method 03/05/22 20:30 Results & Data ([facility]) Laboratory Results Laboratory Results - last 24 hr 03/03/22 18:01 U Marijuana THC Carboxy 470 H Drug Screen Comment SEE NOTE Current Inpatient Medications Current Inpatient Medications: Current Inpatient Medications Acetaminophen (Acetaminophen 325 Mg Tab) 650 mg PO Q4H PRN PRN Reason: Headache or Minor Fever Stop: 04/04/22 19:02 Al Hydrox/Mg Hydrox/Simethicone (Aluminum/Magnesium Susp 30 Ml Udc) 30 ml PO Q4H PRN PRN Reason: GI Upset Stop: 04/04/22 19:02 Bismuth Subsalicylate (Bismuth Subsalicylate Liqd 236 Ml) 15 ml PO PRN PRN PRN Reason: Loose Stool Stop: 04/04/22 19:02 Capsaicin (Capsaicin Cr 0.075% 60 Gm Tube) 1 appln EXT BID PRN PRN Reason: abdominal pain Stop: 04/03/22 14:22 Clonidine HCl (Clonidine Hcl 0.1 Mg Tab) 0.1 mg PO QAM [facility] Stop: 04/04/22 19:14 Last Admin: 03/06/22 09:23 Dose: 0.1 mg Hydroxyzine HCl (Hydroxyzine Hcl 25 Mg Tab) 50 mg PO HSZ PRN PRN Reason: Insomnia Stop: 04/04/22 19:02 Hydroxyzine HCl (Hydroxyzine Hcl 25 Mg Tab) 25 mg PO Q4H PRN PRN Reason: Anxiety Stop: 04/04/22 19:02 Lorazepam (Lorazepam 0.5 Mg Tab) 0.5 mg PO Q6 PRN PRN Reason: Anxiety Stop: 04/03/22 17:59 Last Admin: 03/05/22 15:44 Dose: 0.5 mg Magnesium Hydroxide (Magnesium Hydroxide Susp 30 Ml Udc) 30 ml PO DAILY PRN PRN Reason: Constipation Stop: 04/04/22 19:02 Miscellaneous (Remove Nicoderm Patch) 1 each N/A DAILY@0859 [facility] Stop: 04/03/22 08:58 Last Admin: 03/06/22 09:31 Dose: 1 each Nicotine (Nicotine 14 Mg/24 Hr Patch) 14 mg TD QAM [facility] Stop: 04/03/22 08:59 Last Admin: 03/06/22 09:24 Dose: 14 mg Nicotine Polacrilex (Nicotine Polacrilex 2 Mg Gum) 2 piece MT PRN PRN PRN Reason: Nicotine Withdrawal Stop: 04/02/22 20:34 Last Admin: 03/05/22 17:28 Dose: 2 piece Paroxetine HCl (Paroxetine Hcl 10 Mg Tab) 10 mg PO DAILY [facility] Stop: 04/05/22 08:59 Last Admin: 03/06/22 09:24 Dose: 10 mg Sodium Chloride (Sodium Chloride 0.65% Na Soln 45 Ml ([place])) 1 - 2 sprays NA PRN PRN PRN Reason: Nasal Dryness/Congestion Stop: 04/04/22 19:02 Mental Health & Subst Abuse Tx Psychiatrist Name of Psychiatrist: Tomas Paniagua Psychiatrist's Date Of Appointment With Psychiatric Provider: 03/27/2022 Time of Appointment with Psychiatrist: 11:30am Psychiatric Appointment Comment: telehealth Therapist Name of Therapist: Tomas Vaz Therapist's Date of Therapist Appointment: 03/09/22 Time of Therapist Appointment: 11:30am Therapy Appointment Comment: telehealth Post Discharge Appointments Contact Information Discharge Discharge Address: [address] [place] [address] [place] [address]
[2022-03-07] MEDS: NICOTINE 14 MG/24 HR PATCH TD SCH ×2 (08:53→09:41)
[2022-03-07] MEDS: cloNIDine HCL 0.1 MG TAB PO SCH (09:14)
[2022-03-07] MEDS: PARoxetine HCL 10 MG TAB PO SCH (09:14)
[2022-03-07] MEDS: NICOTINE POLACRILEX 2 MG GUM MT PRN (09:48)
--- NOTE | 2022-03-07 11:22 | Psychiatric Progress Note ---
Date of Service March 07, 2022 Impression / Recommendations Impression Less overwhelmed today, more able to stay on-track during exam. Reviewed his positive response to clonidine, which abbreviated the panic he'd started last night and to which he attributes no side effects. Discussed at some length the possibility that this one medication could be effective for panic and ADHD, though certainly not for depression. (1) Suicidal ideation: (2) Abdominal pain: (3) Cannabis use with anxiety disorder: (4) Panic disorder: (5) ADHD: (6) JEANETTE (generalized anxiety disorder): Plan 03/06/22: Continue clonidine 0.1 mg BID. Anticipate d/c paroxeting tomorrow. After discussion, pt decided not to pursue duloxetine trial and to focus on clonidine for now 03/05/22: Start cautious trial of clonidine 0.1 mg PO daily, primarily targeting anxiety and panic, secondarily ADHD. Anticipate initiation of slow titration of duloxetine from 10 mg to 40 mg daily in 10 mg increments Will d/c buspirone due to lack of benefit and possibility that it may have contributed to pt's suicidality; d/c methylphenidate due to propensity to exacerbate anxiety; initiate paroxetine taper due to lack of perceived benefit and pt's report of suicidality with other SSRI's Suicide Risk Level Suicide Risk Level: Moderate (q15 min suicide checks) Risk Factors Assessment Male: Yes : Yes Do You Have Access To A Gun?: Yes (did in past and need to assume until confirm) Mental Health Diagnoses: Yes Previous Attempt: No Previous Psychiatric Hospitalization: No Protective Factors Assessment Employed: Yes ([employer]) Stable Relationships: Yes Supportive Family: Yes Interval History Identifying Information 21 year-old man with history of ADHD, depressed mood, and panic who presented with intrusive suicidal thoughts with a plan of high potential lethality Chief Complaint "[]". Review of Systems Sleep Information Total Hours of Sleep: 8.5 Meal Information Percent Meal Consumed - Breakfast: 50 Percent Meal Consumed - Lunch: 100 Percent Meal Consumed - Dinner: 70 Nutrition Comment: pt. declines lunch; meal dated. lableled and refrigerated. Pt. requests/receives soda from his locker Medication Trials Pt reports multiple trials of SSRI's (though he can't recall names of specific ones) over the years that appeared to precipitate suicidality and to exacerbate anxiety by making him feel "weird". He has been on methlyphenidate in various forms for years. Recognizes that it tend to make him more anxious though it does help with focus. He notes no benefit with buspirone 60 mg/day (though in suboptimal BID dosing rather than TID). Cites quetiapine as one of the most helpful things he's tried for anxiety, though it is extremely sedating even at 12.5 mg dose. Has never had trial of SNRI, centrally-acting alpha-1 agonist. Subjective Subjective Patient was seen & assessed and interval progress reviewed with [treatment team] [nursing and social work] Medication Trials Pt reports multiple trials of SSRI's (though he can't recall names of specific ones) over the years that appeared to precipitate suicidality and to exacerbate anxiety by making him feel "weird". He has been on methlyphenidate in various forms for years. Recognizes that it tend to make him more anxious though it does help with focus. He notes no benefit with buspirone 60 mg/day (though in suboptimal BID dosing rather than TID). Cites quetiapine as one of the most helpful things he's tried for anxiety, though it is extremely sedating even at 12.5 mg dose. Has never had trial of SNRI, centrally-acting alpha-1 agonist. Physical Exam Psychiatric Orientation: alert and oriented x 3 Apperance: appropriately dressed and appropriately groomed Eye Contact: good eye contact Motor Behavior: no abnormal motor movements Speech: normal rate/rhythm/volume of speech Affect: + anxious affect Mood: + depressed mood Thought Process: + concrete thought process Thought Content: + preoccupation and reality based without delusions Suicidal Thoughts: denies suicidal thoughts Homicidal Thoughts: denies homicidal thoughts Hallucinations: no auditory hallucinations and no visual hallucinations Cognition: language grossly intact; + attention not intact Insight: + limited insight Judgement: + limited judgement Vital Signs (Past 24 Hours) Last Vital Signs Temp 36.6 C 03/07/22 06:34 Pulse 67 03/07/22 10:13 Resp 18 03/07/22 10:13 BP 133/73 03/07/22 10:13 Pulse Ox 97 03/05/22 20:30 O2 Del Method 03/05/22 20:30 Results & Data ([facility]) Laboratory Results Laboratory Results - last 24 hr 03/03/22 18:01 U Marijuana THC Carboxy 470 H Drug Screen Comment SEE NOTE Current Inpatient Medications Current Inpatient Medications: Current Inpatient Medications Acetaminophen (Acetaminophen 325 Mg Tab) 650 mg PO Q4H PRN PRN Reason: Headache or Minor Fever Stop: 04/04/22 19:02 Al Hydrox/Mg Hydrox/Simethicone (Aluminum/Magnesium Susp 30 Ml Udc) 30 ml PO Q4H PRN PRN Reason: GI Upset Stop: 04/04/22 19:02 Bismuth Subsalicylate (Bismuth Subsalicylate Liqd 236 Ml) 15 ml PO PRN PRN PRN Reason: Loose Stool Stop: 04/04/22 19:02 Capsaicin (Capsaicin Cr 0.075% 60 Gm Tube) 1 appln EXT BID PRN PRN Reason: abdominal pain Stop: 04/03/22 14:22 Clonidine HCl (Clonidine Hcl 0.1 Mg/24 Hr Transderm Sys) 1 patch TD Q7D [facility] Stop: 04/06/22 11:29 Hydroxyzine HCl (Hydroxyzine Hcl 25 Mg Tab) 50 mg PO HSZ PRN PRN Reason: Insomnia Stop: 04/04/22 19:02 Hydroxyzine HCl (Hydroxyzine Hcl 25 Mg Tab) 25 mg PO Q4H PRN PRN Reason: Anxiety Stop: 04/04/22 19:02 Lorazepam (Lorazepam 0.5 Mg Tab) 0.5 mg PO Q6 PRN PRN Reason: Anxiety Stop: 04/03/22 17:59 Last Admin: 03/05/22 15:44 Dose: 0.5 mg Magnesium Hydroxide (Magnesium Hydroxide Susp 30 Ml Udc) 30 ml PO DAILY PRN PRN Reason: Constipation Stop: 04/04/22 19:02 Miscellaneous (Remove Nicoderm Patch) 1 each N/A DAILY@0859 [facility] Stop: 04/03/22 08:58 Last Admin: 03/07/22 08:52 Dose: Not Given Miscellaneous (Remove Clonidine Patch) 1 each N/A CQWK [facility] Stop: 04/06/22 11:29 Miscellaneous (Check Clonidine Patch Placement) 1 each N/A QS [facility] Stop: 04/06/22 15:59 Nicotine (Nicotine 14 Mg/24 Hr Patch) 14 mg TD QAM [facility] Stop: 04/03/22 08:59 Last Admin: 03/07/22 09:41 Dose: 14 mg Nicotine Polacrilex (Nicotine Polacrilex 2 Mg Gum) 2 piece MT PRN PRN PRN Reason: Nicotine Withdrawal Stop: 04/02/22 20:34 Last Admin: 03/07/22 09:48 Dose: 2 piece Paroxetine HCl (Paroxetine Hcl 10 Mg Tab) 10 mg PO DAILY [facility] Stop: 04/05/22 08:59 Last Admin: 03/07/22 09:14 Dose: 10 mg Sodium Chloride (Sodium Chloride 0.65% Na Soln 45 Ml ([place])) 1 - 2 sprays NA PRN PRN PRN Reason: Nasal Dryness/Congestion Stop: 04/04/22 19:02 Mental Health & Subst Abuse Tx Psychiatrist Name of Psychiatrist: Tomas Paniagua Psychiatrist's Date Of Appointment With Psychiatric Provider: 03/27/2022 Time of Appointment with Psychiatrist: 11:30am Psychiatric Appointment Comment: telehealth Therapist Name of Therapist: Tomas Vaz Therapist's Date of Therapist Appointment: 03/09/22 Time of Therapist Appointment: 11:30am Therapy Appointment Comment: telehealth Post Discharge Appointments Contact Information Discharge Discharge Address: [address] [place], [place] [address] [id number]
[2022-03-07] MEDS ORDERED: cloNIDine HCL 0.1 MG/24 HR TRANSDERM SYS TD SCH ×2 (11:30→22:00)
[2022-03-07] MEDS ORDERED: CHECK CLONIDINE PATCH PLACEMENT SCH (16:00)
--- NOTE | 2022-03-07 19:01 | Psychiatric Progress Note ---
Date of Service March 07, 2022 Impression / Recommendations Impression Discussed at some length the plan of switching to transdermal clonidine. Pt reports substantial improvement in panic and generalized anxiety and does not wish to add other types of medication. He is somewhat ambivalent about remaining here until tomorrow in order to start patch. (1) Suicidal ideation: (2) Abdominal pain: (3) Cannabis use with anxiety disorder: (4) Panic disorder: (5) ADHD: (6) JEANETTE (generalized anxiety disorder): Plan 03/07/22: Switch from oral to transdermal clonidine 0.1mg/24 hr. Anticipate discharge tomorrow. 03/06/22: Continue clonidine 0.1 mg BID. Anticipate d/c paroxetine tomorrow. After discussion, pt decided not to pursue duloxetine trial and to focus on clonidine for now 03/05/22: Start cautious trial of clonidine 0.1 mg PO daily, primarily targeting anxiety and panic, secondarily ADHD. Anticipate initiation of slow titration of duloxetine from 10 mg to 40 mg daily in 10 mg increments Will d/c buspirone due to lack of benefit and possibility that it may have contributed to pt's suicidality; d/c methylphenidate due to propensity to exacerbate anxiety; initiate paroxetine taper due to lack of perceived benefit and pt's report of suicidality with other SSRI's Suicide Risk Level Suicide Risk Level: Moderate (q15 min suicide checks) Risk Factors Assessment Male: Yes : Yes Do You Have Access To A Gun?: Yes (did in past and need to assume until confirm) Mental Health Diagnoses: Yes Previous Attempt: No Previous Psychiatric Hospitalization: No Protective Factors Assessment Employed: Yes ([employer]) Stable Relationships: Yes Supportive Family: Yes Interval History Identifying Information 21 year-old man with history of ADHD, depressed mood, and panic who presented with intrusive suicidal thoughts with a plan of high potential lethality Chief Complaint "Lots of improvement". Review of Systems Sleep Information Total Hours of Sleep: 8.5 Meal Information Percent Meal Consumed - Breakfast: 50 Percent Meal Consumed - Lunch: 100 Percent Meal Consumed - Dinner: 70 Nutrition Comment: pt. declines lunch; meal dated. lableled and refrigerated. Pt. requests/receives soda from his locker Medication Trials Pt reports multiple trials of SSRI's (though he can't recall names of specific ones) over the years that appeared to precipitate suicidality and to exacerbate anxiety by making him feel "weird". He has been on methlyphenidate in various forms for years. Recognizes that it tend to make him more anxious though it does help with focus. He notes no benefit with buspirone 60 mg/day (though in suboptimal BID dosing rather than TID). Cites quetiapine as one of the most helpful things he's tried for anxiety, though it is extremely sedating even at 12.5 mg dose. Has never had trial of SNRI, centrally-acting alpha-1 agonist. Subjective Subjective Patient was seen & assessed and interval progress reviewed with treatment team nursing and social work Medication Trials Pt reports multiple trials of SSRI's (though he can't recall names of specific ones) over the years that appeared to precipitate suicidality and to exacerbate anxiety by making him feel "weird". He has been on methlyphenidate in various forms for years. Recognizes that it tend to make him more anxious though it does help with focus. He notes no benefit with buspirone 60 mg/day (though in suboptimal BID dosing rather than TID). Cites quetiapine as one of the most helpful things he's tried for anxiety, though it is extremely sedating even at 12.5 mg dose. Has never had trial of SNRI, centrally-acting alpha-1 agonist. Physical Exam Psychiatric Orientation: alert and oriented x 3 Apperance: appropriately dressed and appropriately groomed Eye Contact: good eye contact Motor Behavior: no abnormal motor movements Speech: normal rate/rhythm/volume of speech Affect: + anxious affect Mood: + anxious mood Thought Process: + concrete thought process Thought Content: + preoccupation and reality based without delusions Suicidal Thoughts: denies suicidal thoughts Homicidal Thoughts: denies homicidal thoughts Hallucinations: no auditory hallucinations and no visual hallucinations Cognition: language grossly intact; + attention not intact Insight: + limited insight Judgement: + limited judgement Vital Signs (Past 24 Hours) Last Vital Signs Temp 36.6 C 03/07/22 06:34 Pulse 67 03/07/22 10:13 Resp 18 03/07/22 10:13 BP 133/73 03/07/22 10:13 Pulse Ox 97 03/05/22 20:30 O2 Del Method 03/05/22 20:30 Results & Data ([facility]) Current Inpatient Medications Current Inpatient Medications: Current Inpatient Medications Acetaminophen (Acetaminophen 325 Mg Tab) 650 mg PO Q4H PRN PRN Reason: Headache or Minor Fever Stop: 04/04/22 19:02 Al Hydrox/Mg Hydrox/Simethicone (Aluminum/Magnesium Susp 30 Ml Udc) 30 ml PO Q4H PRN PRN Reason: GI Upset Stop: 04/04/22 19:02 Bismuth Subsalicylate (Bismuth Subsalicylate Liqd 236 Ml) 15 ml PO PRN PRN PRN Reason: Loose Stool Stop: 04/04/22 19:02 Capsaicin (Capsaicin Cr 0.075% 60 Gm Tube) 1 appln EXT BID PRN PRN Reason: abdominal pain Stop: 04/03/22 14:22 Clonidine HCl (Clonidine Hcl 0.1 Mg/24 Hr Transderm Sys) 1 patch TD Q7D [facility] Stop: 04/06/22 21:59 Hydroxyzine HCl (Hydroxyzine Hcl 25 Mg Tab) 50 mg PO HSZ PRN PRN Reason: Insomnia Stop: 04/04/22 19:02 Hydroxyzine HCl (Hydroxyzine Hcl 25 Mg Tab) 25 mg PO Q4H PRN PRN Reason: Anxiety Stop: 04/04/22 19:02 Lorazepam (Lorazepam 0.5 Mg Tab) 0.5 mg PO Q6 PRN PRN Reason: Anxiety Stop: 04/03/22 17:59 Last Admin: 03/05/22 15:44 Dose: 0.5 mg Magnesium Hydroxide (Magnesium Hydroxide Susp 30 Ml Udc) 30 ml PO DAILY PRN PRN Reason: Constipation Stop: 04/04/22 19:02 Miscellaneous (Remove Nicoderm Patch) 1 each N/A DAILY@0859 [facility] Stop: 04/03/22 08:58 Last Admin: 03/07/22 08:52 Dose: Not Given Miscellaneous (Check Clonidine Patch Placement) 1 each N/A QS [facility] Stop: 04/07/22 00:00 Miscellaneous (Remove Clonidine Patch) 1 each N/A CQWK [facility] Stop: 04/13/22 21:59 Nicotine (Nicotine 14 Mg/24 Hr Patch) 14 mg TD QAM [facility] Stop: 04/03/22 08:59 Last Admin: 03/07/22 09:41 Dose: 14 mg Nicotine Polacrilex (Nicotine Polacrilex 2 Mg Gum) 2 piece MT PRN PRN PRN Reason: Nicotine Withdrawal Stop: 04/02/22 20:34 Last Admin: 03/07/22 09:48 Dose: 2 piece Paroxetine HCl (Paroxetine Hcl 10 Mg Tab) 10 mg PO DAILY [facility] Stop: 04/05/22 08:59 Last Admin: 03/07/22 09:14 Dose: 10 mg Sodium Chloride (Sodium Chloride 0.65% Na Soln 45 Ml ([place])) 1 - 2 sprays NA PRN PRN PRN Reason: Nasal Dryness/Congestion Stop: 04/04/22 19:02 Mental Health & Subst Abuse Tx Psychiatrist Name of Psychiatrist: Tomas Paniagua Psychiatrist's Date Of Appointment With Psychiatric Provider: 03/27/2022 Time of Appointment with Psychiatrist: 11:30am Psychiatric Appointment Comment: telehealth Therapist Name of Therapist: Tomas Vaz Therapist's Date of Therapist Appointment: 03/09/22 Time of Therapist Appointment: 11:30am Therapy Appointment Comment: telehealth Post Discharge Appointments Contact Information Discharge Discharge Address: [address] [place], [place] [address] [id number]
[2022-03-08] MEDS: CHECK CLONIDINE PATCH PLACEMENT SCH ×2 (00:09→08:25)
[2022-03-08] MEDS: PARoxetine HCL 10 MG TAB PO SCH (08:24)
[2022-03-08] MEDS: NICOTINE 14 MG/24 HR PATCH TD SCH (08:25)
[2022-03-08] MEDS ORDERED: DESTROY THIS MEDICATION ONE (11:40)
--- NOTE | 2022-03-08 22:16 | Discharge Summary ---
Date of Service March 08, 2022 Physical Exam Psychiatric Orientation: alert and oriented x 3 Apperance: appropriately dressed and appropriately groomed Eye Contact: good eye contact Motor Behavior: no abnormal motor movements Speech: normal rate/rhythm/volume of speech Affect: + anxious affect Mood: + depressed mood and + anxious mood Thought Process: + concrete thought process Thought Content: + preoccupation and reality based without delusions Suicidal Thoughts: denies suicidal thoughts Homicidal Thoughts: denies homicidal thoughts Hallucinations: no auditory hallucinations and no visual hallucinations Cognition: language grossly intact; + attention not intact Insight: + limited insight Judgement: + limited judgement Vital Signs (Past 24 Hours) Last Vital Signs Temp 36.6 C 03/08/22 10:27 Pulse 94 H 03/08/22 10:27 Resp 16 03/08/22 10:27 BP 101/56 L 03/08/22 10:27 Pulse Ox 97 03/08/22 10:27 O2 Del Method 03/05/22 20:30 Principal Diagnosis Panic Disorder Psychiatric Data See daily stay summary. In short, safety was maintained and the patient was cooperative with care. Medication changes included [] and they tolerated this well. A family session was [held] and safety plan was completed prior to discharge. Day of Discharge Assessment Today the patient voices readiness for discharge. They note improvement in mood and deny thoughts to harm self or others. Thoughts remain organized and they are improved from admission. There is no evidence of psychosis. They agree to take mediations as prescribed and keep follow-up appointments. They are stable for discharge to outpatient level of care. Advance Directives Advance Directives Information Provided: Yes Advance Directives: No Mental Health Advance Directive: No Advance Directives on File: No Living Will: No Power of Moving Consultant: No Advance Directives Reason:: Declines as Mental Health Visit. Risk Factors Assessment Male: Yes : Yes Do You Have Access To A Gun?: Yes (did in past and need to assume until confirm) Mental Health Diagnoses: Yes Previous Attempt: No Previous Psychiatric Hospitalization: No Protective Factors Assessment Employed: Yes ([employer]) Stable Relationships: Yes Supportive Family: Yes Tobacco Cessation at Discharge Tobacco Cessation Medication Prescribed at Discharge: Offered & Pt Refused Practical counseling provided including: providing basic information about quitting Total Time Total Time Spent: Greater Than 30 Minutes Total Time Includes: Examination of the patient, Discharge Planning and Medication Reconciliation Discharge Data Lab Results 03/03/22 03/03/22 03/03/22 17:24 17:24 17:24 WBC 6.79 RBC 4.93 Hgb 15.0 Hct 42.5 MCV 86.2 MCH 30.4 MCHC 35.3 RDW Std Deviation 40.4 RDW Coeff of Lyly 12.9 Plt Count 352 MPV 9.0 L Immature Gran % (Auto) 0.1 Neut % (Auto) 68.1 Lymph % (Auto) 22.8 [place] % (Auto) 6.2 Eos % (Auto) 1.8 Baso % (Auto) 1.0 Neut # (Auto) 4.62 Lymph # (Auto) 1.55 [place] # (Auto) 0.42 Eos # (Auto) 0.12 Baso # (Auto) 0.07 Immature Gran # (Auto) 0.01 Sodium 139 Potassium 3.9 Chloride 105 Carbon Dioxide 27 Anion Gap 7 BUN 12 Creatinine 0.99 Est Cr Clr Drug Dosing 116.0 Est GFR ( Amer) 123.9 Est GFR (Non-Af Amer) 106.9 BUN/Creatinine Ratio 12.1 Glucose 91 Calcium 9.8 Total Bilirubin 0.8 AST 19 ALT 13 Alkaline Phosphatase 52 Total Protein 7.8 Albumin 5.0 Globulin 2.8 Albumin/Globulin Ratio 1.8 TSH 1.128 Urine Color Urine Appearance Urine pH Ur Specific [place] Urine Protein Urine Glucose (UA) Urine Ketones Urine Blood Urine Nitrite Urine Bilirubin Urine Urobilinogen Ur Leukocyte Esterase Urine WBC (Auto) Urine RBC (Auto) U Hyaline Cast (Auto) U Epithel Cells (Auto) Urine Bacteria (Auto) Salicylates Urine Opiates Screen Ur Methadone, Qual Acetaminophen Urine Barbiturates Ur Phencyclidine (PCP) U Amphetamin/Meth Scrn MDMA (Ecstasy) Screen U Benzodiazepines Scrn Ur Cocaine Metabolite U Marijuana (THC) Screen U Marijuana THC Carboxy Drug Screen Comment Ethyl Alcohol mg/dL SARS-CoV-2, RNA, NAAT 03/03/22 03/03/22 03/03/22 17:24 17:24 17:24 WBC RBC Hgb Hct MCV MCH MCHC RDW Std Deviation RDW Coeff of Lyly Plt Count MPV Immature Gran % (Auto) Neut % (Auto) Lymph % (Auto) [place] % (Auto) Eos % (Auto) Baso % (Auto) Neut # (Auto) Lymph # (Auto) [place] # (Auto) Eos # (Auto) Baso # (Auto) Immature Gran # (Auto) Sodium Potassium Chloride Carbon Dioxide Anion Gap BUN Creatinine Est Cr Clr Drug Dosing Est GFR ( Amer) Est GFR (Non-Af Amer) BUN/Creatinine Ratio Glucose Calcium Total Bilirubin AST ALT Alkaline Phosphatase Total Protein Albumin Globulin Albumin/Globulin Ratio TSH Urine Color Urine Appearance Urine pH Ur Specific [place] Urine Protein Urine Glucose (UA) Urine Ketones Urine Blood Urine Nitrite Urine Bilirubin Urine Urobilinogen Ur Leukocyte Esterase Urine WBC (Auto) Urine RBC (Auto) U Hyaline Cast (Auto) U Epithel Cells (Auto) Urine Bacteria (Auto) Salicylates < 3.0 L Urine Opiates Screen Ur Methadone, Qual Acetaminophen < 3 L Urine Barbiturates Ur Phencyclidine (PCP) U Amphetamin/Meth Scrn MDMA (Ecstasy) Screen U Benzodiazepines Scrn Ur Cocaine Metabolite U Marijuana (THC) Screen U Marijuana THC Carboxy Drug Screen Comment Ethyl Alcohol mg/dL < 10.0 SARS-CoV-2, RNA, NAAT NEGATIVE 03/03/22 03/03/22 03/03/22 18:01 18:01 18:01 WBC RBC Hgb Hct MCV MCH MCHC RDW Std Deviation RDW Coeff of Lyly Plt Count MPV Immature Gran % (Auto) Neut % (Auto) Lymph % (Auto) [place] % (Auto) Eos % (Auto) Baso % (Auto) Neut # (Auto) Lymph # (Auto) [place] # (Auto) Eos # (Auto) Baso # (Auto) Immature Gran # (Auto) Sodium Potassium Chloride Carbon Dioxide Anion Gap BUN Creatinine Est Cr Clr Drug Dosing Est GFR ( Amer) Est GFR (Non-Af Amer) BUN/Creatinine Ratio Glucose Calcium Total Bilirubin AST ALT Alkaline Phosphatase Total Protein Albumin Globulin Albumin/Globulin Ratio TSH Urine Color Yellow Urine Appearance Clear Urine pH 6.0 Ur Specific [place] 1.012 Urine Protein Negative Urine Glucose (UA) Negative Urine Ketones Negative Urine Blood Trace H Urine Nitrite Negative Urine Bilirubin Negative Urine Urobilinogen Negative Ur Leukocyte Esterase Negative Urine WBC (Auto) 1-5 Urine RBC (Auto) 0-4 U Hyaline Cast (Auto) 0 U Epithel Cells (Auto) 0-5 Urine Bacteria (Auto) Negative Salicylates Urine Opiates Screen Neg Ur Methadone, Qual Neg Acetaminophen Urine Barbiturates Neg Ur Phencyclidine (PCP) Neg U Amphetamin/Meth Scrn Neg MDMA (Ecstasy) Screen Neg U Benzodiazepines Scrn Neg Ur Cocaine Metabolite Neg U Marijuana (THC) Screen Pos H U Marijuana THC Carboxy 470 H Drug Screen Comment SEE NOTE Ethyl Alcohol mg/dL SARS-CoV-2, RNA, NAAT Hospital Course (1) Suicidal ideation: (2) Abdominal pain: (3) Cannabis use with anxiety disorder: (4) Panic disorder: (5) ADHD: (6) JEANETTE (generalized anxiety disorder): Plan 03/07/22: Switch from oral to transdermal clonidine 0.1mg/24 hr. Anticipate discharge tomorrow. 03/06/22: Continue clonidine 0.1 mg BID. Anticipate d/c paroxetine tomorrow. After discussion, pt decided not to pursue duloxetine trial and to focus on clonidine for now 03/05/22: Start cautious trial of clonidine 0.1 mg PO daily, primarily targeting anxiety and panic, secondarily ADHD. Anticipate initiation of slow titration of duloxetine from 10 mg to 40 mg daily in 10 mg increments Will d/c buspirone due to lack of benefit and possibility that it may have contributed to pt's suicidality; d/c methylphenidate due to propensity to exacerbate anxiety; initiate paroxetine taper due to lack of perceived benefit and pt's report of suicidality with other SSRI's Mental Health & Subst Abuse Tx Psychiatrist Name of Psychiatrist: Tomas Paniagua Psychiatrist's Date Of Appointment With Psychiatric Provider: 03/27/2022 Time of Appointment with Psychiatrist: 11:30am Psychiatric Appointment Comment: telehealth Psychiatrist Release of Information: Obtained, Reviewed and Signed Therapist Name of Therapist: Tomas Vaz Therapist's Date of Therapist Appointment: 03/09/22 Time of Therapist Appointment: 11:30am Therapy Appointment Comment: telehealth Therapist Release of Information: Obtained, Reviewed and Signed Post Discharge Appointments Smoking Cessation Counseling Tobacco Cessation Medication Prescribed at Discharge: Offered & Pt Refused Contact Information Discharge Discharge Address: [address] [place] [address] Discharge Plan Discharge Items Patient Disposition: Home - Self-Care Reason For Visit: MDD Discharge Diagnosis: Panic Disorder, Generalized Anxiety Disorder, Attention Deficit-Hyperactivity Disorder Condition on Discharge: Good Activity: Resume your previous activity Bathing: No limitations Sexual Activity: When tolerated Exercise/Sports: As tolerated Driving/Machine Use: No limitations Weightbearing: Full weightbearing Non-emergency contact: Primary Care Provider and Psychiatrist Call non-emergency contact if: you have any medication questions and your symptoms worsen Follow-up/Referrals: PCP,NO [Primary Care Provider] - Diet: Regular Addtl Attending Provider Instructions: SPECIAL CARE INSTRUCTIONS: 1. Follow through with your scheduled aftercare appointments. If unable to keep an appointment, please call to reschedule. 2. Take your medication only as prescribed. Medication should not be changed or stopped without the approval of your doctor. In the event of worsening symptoms or concerns about side effects, contact your doctor immediately. 3. Utilize new healthy coping skills, anger management skills, and stress management skills learned during your hospitalization. Journal feelings and process them with a support person. Identify stressors or situations that may result in relapse, deterioration or inappropriate behaviors and develop a plan to deal with those issues. 4. If your coping skills are ineffective and you are in crisis, contact your outpatient providers for direction. If unable to reach your providers, please call the [facility] CRISIS LINE AT , go to the [facility] walk-in center at [address] [facility], [facility], [place], or go to the closest Emergency Room. 5. Avoid alcohol and un-prescribed drugs. 6. You have been provided with the Mental Health Advance Directives Pamphlet for your review. 7. Your condition is stable for discharge to outpatient level of care, but recovery is an ongoing process. Ifthoughts to harm yourself or others return, follow the safety plan developed during your stay. Planning for a safe return home includes securing weapons. Our treatment team recommends weaponsbe removed from the home until your outpatient provider reassesses your progress. In rare cases where the items themselvescannot be removed, guns and ammunitionshould be secured separatelyand keys stored by a reliable personoutside of the home. If you were admitted on an involuntary commitment, the police or other legal authorities may be involved in this process. AFTERCARE APPOINTMENTS: * Please call your insurance company prior to your scheduled appointment to confirm your aftercare providers are covered. Take your insurance information to your appointments. WHO TO CALL AND WHEN: Medical Emergencies: For questions or emergencies related to your hospital stay, please contact the Inpatient Behavioral Health Unit at [phone]. A banquet chef is on-call 31/08 for the Behavioral Health Unit for emergencies At any time you feel your situation is an emergency, you may also call 911 immediately. Pending Studies at Discharge: No Stand-Alone Forms: [facility], Smoking Cessation Medications and DC Order Prescriptions: New clonidine 0.1 mg/24 hr Patch Weekly 1 patch transdermal Q7D Qty: 4 0RF paroxetine HCl 10 mg Tablet 10 mg PO DAILY Qty: 30 0RF Continued ondansetron HCl 4 mg Tablet 4 mg PO Q8H PRN (Reason: Nausea) Discontinued methylphenidate HCl [Concerta] 54 mg Tablet Extended Release 24hr 54 mg PO QAM lorazepam [Ativan] 0.5 mg Tablet 0.5 mg PO BID PRN (Reason: Anxiety) paroxetine HCl [Paxil] 20 mg Tablet 20 mg PO DAILY buspirone [BuSpar] 30 mg Tablet 30 mg PO BID quetiapine 25 mg tablet 25 mg PO BID PRN (Reason: anxiety/sleep) Discharge Orders: Discharge Order (Routine); Ordered 03/08/22 Ordered By: Pantera Barbour Admission Data Admit Date/Time: 03/03/22 20:58 Attending Provider: Pantera Barbour Admit Provider: Jen Corea Primary Care Provider: PCP,NO Other Interventions: Discharge Summary Assessment (RN) Last Done: 03/08/22 10:27 PSY Interdisciplinary Discharge Planning Last Done: 03/08/22 10:29 Coding Level of Care Code 18187 D/C day mgmt > 30 min Diagnoses Suicidal ideation R45.851 Abdominal pain R10.9 Cannabis use with anxiety disorder F12.980 Panic disorder F41.0 ADHD F90.9 JEANETTE (generalized anxiety disorder) F41.1
== END 2022-03-08 11:39 | disposition home or self-care (01) | DRG 880 ==
LOC: ED 16:26 → 3S 20:45 → SUATTDRO 20:58

== ENCOUNTER 2023-04-28 14:01 | Inpatient (IN) ==
[2023-04-28 15:34] LABS: Basophils # (auto) 0.06 K/uL (0.00-0.20); Eosinophils # (auto) 0.17 K/uL (0.00-0.50); Eosinophils % (auto) 2.8 %; Hematocrit (blood only) 37.9 % (42.0-52.0); Hemoglobin 13.6 g/dl (14.0-18.0); Immature Granulocytes # (auto) 0.04 K/uL (0.01-0.20); Immature Granulocytes % (auto) 0.7 %; Lymphocytes # (auto) 1.36 K/uL (1.20-3.40); Lymphocytes % (auto) 22.2 %; Mean Corpuscular Hemoglobin 28.5 pg (25.0-34.0); Mean Corpuscular Hgb Conc 35.9 g/dL (32.0-36.0); Mean Corpuscular Volume 79.5 fL (80.0-100.0); Mean Platelet Volume 8.9 fL (9.4-12.4); Monocytes # (auto) 0.36 K/uL (0.11-0.59); Monocytes % (auto) 5.9 %; Neutrophils # (auto) 4.13 K/uL (1.40-6.50); Neutrophils % (auto) 67.4 %; Platelet Count 373 K/uL (130-400); RDW Standard Deviation 37.1 fL (36.4-46.3); Red Blood Count 4.77 M/uL (4.70-6.10); White Blood Count 6.12 K/ul (4.8-10.8)
[2023-04-28 15:48] LABS: Appearance Urine Clear (Clear); Bacteria Urine Automated Negative (Negative); Bilirubin Urine Negative (Negative); Blood Urine Trace (Negative); Color Urine Yellow; Epithelial Cell Urine Auto 0-5 /lpf (0-5); Glucose Urine UA Negative (Negative); Ketones Urine Negative (Negative); Leukocyte Esterase Urine Negative (Negative); Nitrite Urine Negative (Negative); Protein Urine Negative (Negative); RBC Urine Automated 0-4 /hpf (0-4); Specific Gravity Urine 1.017 (1.000-1.030); Urobilinogen Urine Negative (Negative)
[2023-04-28 15:55] LABS: Albumin Globulin Ratio 1.3 (0.9-2); Albumin Level 4.6 gm/dl (3.4-5.0); BUN Creatinine Ratio 11.8 (10-20); Bilirubin,Total 0.6 mg/dl (0.2-1.0); Calcium 9.4 mg/dl (8.6-10.3); Creatinine Clr Calc Pharmacy 146.4 ml/min; Est GFR (African American) 132.7 ml/min; Est GFR (Non-African American) 114.5 ml/min; Globulin 3.6 gm/dl (2.5-4.0); Potassium 3.9 mmol/L (3.5-5.1); Total Protein 8.2 gm/dl (6.0-8.3)
[2023-04-28 16:04] LABS: Acetaminophen < 3 ug/ml (10-30); Salicylate < 3.0 mg/dl (3.0-30)
[2023-04-28 16:10] LABS: Thyroid Stimulating Hormone 1.736 uIu/ml (0.300-4.500)
[2023-04-28 16:28] LABS: Amphetamines+Metham, Urine Neg (Neg); Barbiturates, Urine Neg (Neg); Benzodiazepine, Urine Neg (Neg); Cocaine, Urine Neg (Neg); MDMA (Ecstacy), Urine Neg (Neg); Marijuana, Urine Pos (Neg); Methadone, Urine Neg (Neg); Opiate, Urine Neg (Neg); Phencyclidine, Urine Neg (Neg)
[2023-04-28] MEDS ORDERED: ALUMINUM/MAGNESIUM SUSP 30 ML UDC PO PRN (18:29)
[2023-04-28] MEDS ORDERED: BISMUTH SUBSALICYLATE LIQD 236 ML PO PRN (18:29)
[2023-04-28] MEDS ORDERED: SODIUM CHLORIDE 0.65% NA SOLN 45 ML (OCEAN) PRN (18:29)
[2023-04-28] MEDS ORDERED: MAGNESIUM HYDROXIDE SUSP 30 ML UDC PO PRN (18:29)
[2023-04-28] MEDS ORDERED: hydrOXYzine HCl 25 MG TAB PO PRN (18:29)
[2023-04-28] MEDS: NICOTINE POLACRILEX 2 MG GUM MT PRN (20:32)
--- NOTE | 2023-04-28 22:50 | Emergency Department Note ---
Impression & Plan Suicidal ideations ED Provider Note CHIEF COMPLAINT: Mental health evaluation HISTORY OF PRESENT ILLNESS: This 22-year-old male patient who presents emergency department with complaints of suicidal ideation. The patient states he has had thoughts of shooting himself. He states he has many guns at his disposal at home. Patient has had no alcohol intoxication, but does use marijuana heavily. He states that has gone from "therapeutic" to "a problem." He denies ingestion of aspirin and Tylenol. He has not been ill recently. REVIEW OF SYSTEMS: A review of systems was performed with positives and pertinent negatives listed in the history of present illness. 10 systems were reviewed and are otherwise negative. ALLERGIES: see below MEDICATIONS: see below PMH: see below SOCIAL HISTORY: see below DDx: Suicidal ideation, depression, anxiety, substance abuse, alcohol intoxication, among others. PHYSICAL EXAM: Vital signs reviewed. General: Well-appearing 22-year-old male, somewhat anxious. HEENT: No scleral icterus, PERRLA, neck supple. Moist mucous membranes, atraumatic Cardiovascular: Regular rate and rhythm, no extra sounds. Pulmonary: Clear to auscultation bilaterally, normal work of breathing. Abdomen: Soft, nontender, nondistended, positive bowel sounds. Musculoskeletal: Atraumatic, no peripheral edema. Psych: Positive SI, negative HI Neurologic: Patient awake alert and oriented x 3, speech is clear Skin: Warm, dry, no rash EMERGENCY DEPARTMENT COURSE/MDM: This patient was evaluated and appeared to be in no distress. Patient was medically cleared and evaluated by psychiatric fast food restaurant manager. The patient was referred to [facility] for further management. He was accepted to their unit for inpatient management. DISPOSITION: Admission Past Med/Surg History Medical History ADHD Cannabis use with anxiety disorder No active medical problems Abdominal pain Suicidal ideation Social History Smoking Status: Light tobacco smoker Tobacco Type: Smokeless Tobacco (Dip or Chew) Preferred Language: Persian Communication Ability: Effective Information Consultant Required: No Beliefs That Will Affect Care: None Feels Safe at Home: Yes Gender Identity: Male Assistive Devices: None Allergies Allergies Allergy/AdvReac Type Severity Reaction Status Date / Time pollen extracts Allergy Intermediate ITCHY Verified 04/28/23 17:02 EYES, SNEEZING, CONGESTION Home Meds Home Medications Medication Instructions Recorded Confirmed cetirizine 10 mg tablet (Zyrtec) 10 mg PO DAILY PRN Congestion 04/28/23 04/28/23 clonidine 0.1 mg/24 hr weekly 1 patch transdermal WK 04/28/23 04/28/23 transdermal patch hydroxyzine HCl 10 mg tablet 10 mg PO BID 04/28/23 04/28/23 sertraline 100 mg tablet 100 mg PO DAILY 04/28/23 04/28/23 Results & Data (ED) Vital Signs Vital Signs - 24 hr 04/28/23 14:13 04/28/23 16:26 Temperature 36.6 C Temperature Source Temporal Artery Scan Pulse Rate 77 Pulse Rate [Finger] 63 Respiratory Rate 20 18 Respiratory Effort / Characteristics Non-Labored Non-Labored Spontaneous Respiratory Depth Normal Normal Respiratory Pattern Regular Blood Pressure 159/106 H Blood Pressure [Left Arm] 115/75 Blood Pressure Mean 123 Blood Pressure Mean [Left Arm] 88 Blood Pressure Position [Left Arm] Lying Pulse Oximetry 96 98 Oxygen Delivery Method Room Air Room Air Sepsis Recent Fever Within 48 Hours No Sepsis New/Unexplained Change in Mental Status No Sepsis Action Taken by Nursing No Action Required Home Medications Current Medication List: was personally reviewed by me Laboratory Data Attestation: I reviewed the patient's lab results. 04/28/23 14:30 04/28/23 14:30 Lab Results 04/28/23 04/28/23 04/28/23 Range/Units 14:30 14:45 16:20 WBC 6.12 (4.8-10.8) K/ul RBC 4.77 (4.70-6.10) M/uL Hgb 13.6 L (14.0-18.0) g/dl Hct 37.9 L (42.0-52.0) % MCV 79.5 L (80.0-100.0) fL MCH 28.5 (25.0-34.0) pg MCHC 35.9 (32.0-36.0) g/dL RDW Std Deviation 37.1 (36.4-46.3) fL RDW Coeff of Lyly 13.0 (11.5-14.5) % Plt Count 373 (130-400) K/uL MPV 8.9 L (9.4-12.4) fL Immature Gran % (Auto) 0.7 % Neut % (Auto) 67.4 % Lymph % (Auto) 22.2 % Hand % (Auto) 5.9 % Eos % (Auto) 2.8 % Baso % (Auto) 1.0 % Neut # (Auto) 4.13 (1.40-6.50) K/uL Lymph # (Auto) 1.36 (1.20-3.40) K/uL Hand # (Auto) 0.36 (0.11-0.59) K/uL Eos # (Auto) 0.17 (0.00-0.50) K/uL Baso # (Auto) 0.06 (0.00-0.20) K/uL Immature Gran # (Auto) 0.04 (0.01-0.20) K/uL Sodium 136 (136-145) mmol/L Potassium 3.9 (3.5-5.1) mmol/L Chloride 105 (98-107) mmol/L Carbon Dioxide 23 (21-32) mmol/L Anion Gap 8 (3-11) BUN 11 (6-23) mg/dl Creatinine 0.93 (0.6-1.4) mg/dl Est Cr Clr Drug Dosing 146.4 ml/min Est GFR ( Amer) 132.7 ml/min Est GFR (Non-Af Amer) 114.5 ml/min BUN/Creatinine Ratio 11.8 (10-20) Glucose 95 (70-99(Fasting)) mg/dl Calcium 9.4 (8.6-10.3) mg/dl Total Bilirubin 0.6 (0.2-1.0) mg/dl AST 18 (13-39) U/L ALT 15 (7-52) U/L Alkaline Phosphatase 73 (34-104) U/L Total Protein 8.2 (6.0-8.3) gm/dl Albumin 4.6 (3.4-5.0) gm/dl Globulin 3.6 (2.5-4.0) gm/dl Albumin/Globulin Ratio 1.3 (0.9-2) TSH 1.736 (0.300-4.500) uIu/ml Urine Color Yellow Urine Appearance Clear (Clear) Urine pH 6.0 (4.5-7.5) Ur Specific [place] 1.017 (1.000-1.030) Urine Protein Negative (Negative) Urine Glucose (UA) Negative (Negative) Urine Ketones Negative (Negative) Urine Blood Trace H (Negative) Urine Nitrite Negative (Negative) Urine Bilirubin Negative (Negative) Urine Urobilinogen Negative (Negative) Ur Leukocyte Esterase Negative (Negative) Urine WBC (Auto) 1-5 (0-5) /hpf Urine RBC (Auto) 0-4 (0-4) /hpf U Hyaline Cast (Auto) 1-5 (0-5) /lpf U Epithel Cells (Auto) 0-5 (0-5) /lpf Urine Bacteria (Auto) Negative (Negative) Salicylates < 3.0 L (3.0-30) mg/dl Urine Opiates Screen Neg (Neg) Ur Methadone, Qual Neg (Neg) Acetaminophen < 3 L (10-30) ug/ml Urine Barbiturates Neg (Neg) Ur Phencyclidine (PCP) Neg (Neg) U Amphetamin/Meth Scrn Neg (Neg) MDMA (Ecstasy) Screen Neg (Neg) U Benzodiazepines Scrn Neg (Neg) Ur Cocaine Metabolite Neg (Neg) U Marijuana (THC) Screen Pos H (Neg) Ethyl Alcohol mg/dL < 10.0 (<10.0) mg/dl SARS-CoV-2, RNA, NAAT Cancelled 04/28/23 Range/Units 17:09 WBC (4.8-10.8) K/ul RBC (4.70-6.10) M/uL Hgb (14.0-18.0) g/dl Hct (42.0-52.0) % MCV (80.0-100.0) fL MCH (25.0-34.0) pg MCHC (32.0-36.0) g/dL RDW Std Deviation (36.4-46.3) fL RDW Coeff of Lyly (11.5-14.5) % Plt Count (130-400) K/uL MPV (9.4-12.4) fL Immature Gran % (Auto) % Neut % (Auto) % Lymph % (Auto) % Hand % (Auto) % Eos % (Auto) % Baso % (Auto) % Neut # (Auto) (1.40-6.50) K/uL Lymph # (Auto) (1.20-3.40) K/uL Hand # (Auto) (0.11-0.59) K/uL Eos # (Auto) (0.00-0.50) K/uL Baso # (Auto) (0.00-0.20) K/uL Immature Gran # (Auto) (0.01-0.20) K/uL Sodium (136-145) mmol/L Potassium (3.5-5.1) mmol/L Chloride (98-107) mmol/L Carbon Dioxide (21-32) mmol/L Anion Gap (3-11) BUN (6-23) mg/dl Creatinine (0.6-1.4) mg/dl Est Cr Clr Drug Dosing ml/min Est GFR ( Amer) ml/min Est GFR (Non-Af Amer) ml/min BUN/Creatinine Ratio (10-20) Glucose (70-99(Fasting)) mg/dl Calcium (8.6-10.3) mg/dl Total Bilirubin (0.2-1.0) mg/dl AST (13-39) U/L ALT (7-52) U/L Alkaline Phosphatase (34-104) U/L Total Protein (6.0-8.3) gm/dl Albumin (3.4-5.0) gm/dl Globulin (2.5-4.0) gm/dl Albumin/Globulin Ratio (0.9-2) TSH (0.300-4.500) uIu/ml Urine Color Urine Appearance (Clear) Urine pH (4.5-7.5) Ur Specific [place] (1.000-1.030) Urine Protein (Negative) Urine Glucose (UA) (Negative) Urine Ketones (Negative) Urine Blood (Negative) Urine Nitrite (Negative) Urine Bilirubin (Negative) Urine Urobilinogen (Negative) Ur Leukocyte Esterase (Negative) Urine WBC (Auto) (0-5) /hpf Urine RBC (Auto) (0-4) /hpf U Hyaline Cast (Auto) (0-5) /lpf U Epithel Cells (Auto) (0-5) /lpf Urine Bacteria (Auto) (Negative) Salicylates (3.0-30) mg/dl Urine Opiates Screen (Neg) Ur Methadone, Qual (Neg) Acetaminophen (10-30) ug/ml Urine Barbiturates (Neg) Ur Phencyclidine (PCP) (Neg) U Amphetamin/Meth Scrn (Neg) MDMA (Ecstasy) Screen (Neg) U Benzodiazepines Scrn (Neg) Ur Cocaine Metabolite (Neg) U Marijuana (THC) Screen (Neg) Ethyl Alcohol mg/dL (<10.0) mg/dl SARS-CoV-2, RNA, NAAT NEGATIVE Administered Medications Nicotine Polacrilex (Nicotine Polacrilex 2 Mg Gum) 2 piece MT PRN PRN PRN Reason: Nicotine Withdrawal Symptoms Stop: 05/28/23 18:28 Last Admin: 04/28/23 20:32 Dose: 2 piece Documented By: SEVERO Discharge Plan Visit Data Chief Complaint: Mental Health Evaluation Stated Complaint: MENTAL HEALTH ED Provider: Tania Sy Discharge Problem: Suicidal ideations Patient Disposition: Admitted As Inpatient Discharge Instructions Interventions: ED Discharge Assessment Last Done: 04/28/23 18:48
[2023-04-29] MEDS: NICOTINE 14 MG/24 HR PATCH TD SCH (10:41)
[2023-04-29] MEDS: SERTRALINE HCL 50 MG TABLET PO SCH (10:47)
[2023-04-29] MEDS: CHECK CLONIDINE PATCH PLACEMENT SCH (16:00)
--- NOTE | 2023-04-29 17:56 | History & Physical ---
Date of Service April 29, 2023 Impression / Recommendations Impression 22 yo male presenting with recurrent SI in the setting of work related stress, possible dissociative symptoms. Complex presentation as uses MJ regularly and doesn't want to self harm but describes intrusive thoughts, images, excessive apologizing, and other features consistent with OCD. Differential includes early psychotic features with thought blocking, personality disorder, etc. Overall, I spent a total of 65 minutes with this case, including review of chart, review of records, direct evaluation of the patient, counseling the patient, ordering medication, coordination with nursing,risk assessment, and do cumentation. (1) Major depressive disorder with current active episode: (2) Obsessive compulsive disorder: (3) Cannabis use with anxiety disorder: Plan The patient was admitted to [facility] ([facility] inpatient mental health unit) on q15 min checks (behavioral with suicide precautions) for safety. The patient will participate in group, recreational, and milieu therapies and will be offered additional individual and family sessions as clinically appropriate. Will begin taper of Zoloft. Patient will require brief intervention again around his substance use as complicating his presentation. THC level pending. Inventory Assets Strengths: help seeking, work oriented Needs: improve insight and coping Suicide Risk Level Suicide Risk Level: High-Moderate (q15 min suicide checks) Risk Factors Assessment Male: Yes : Yes Do You Have Access To A Gun?: Yes ( is securing) Mental Health Diagnoses: Yes Substance Use Disorders: Yes (regular cannabis despite impact on mood) Previous Attempt: No Previous Psychiatric Hospitalization: Yes Protective Factors Assessment : Yes Employed: Yes ([employer] in [place]) Psychiatric History Identifying Data SMITHA CADET is a 22-year-old M from [place], has a history of previous admission to (February 2022), and was admitted on 04/28/23 18:47 on a 201 voluntary commitment for SI with plan. Chief Complaint "I get these intense images of holding a gun to my head, it's like virtual reality". History of Present Illness History reviewed and confirmed as documented by ED CM: Met with Lobo at bedside to complete psychiatric assessment. Lobo endorses suicidal ideation with a plan to shoot himself. Lobo was inpatient at our facility from 03/03- of this year. Previous stressors included relationship issues with his then fiancee, now , Sera. Sera is at bedside and has excused herself at Lobo's request. He has been struggling with increasing suicidal thoughts and has "a bunch" of guns at home that he loves. Lobo has history of placing guns that are loaded to his head and in his mouth. He does admit to recently placing one of his guns to his head that was not at the time loaded. His grandfather had secured his guns at the time of his last admission, but he does have possession of them now. Lobo follows with Kristin Temple at [facility] and is prescribed sertraline daily and hydroxyzine PRN. Pt reports increased need for his PRN due to anxiety and panic attacks. He follows with Harper Vaz there for therapy. He had a therapy appointment today and his therapist advised him to come to the ED for evaluation and treatment following that session. Lobo denies A/V hallucinations but while at work he says it feels like someone has put a VR headset on him and he can just see images of him holding a gun to his head or crashing his car into a tree on repeat. This is very distressing and exhausting to him. He has been sleeping upwards of 8-10 hours and still feeling exhausted. He has little to no appetite and has been having to force himself to eat so that he has enough energy to go to work. 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 Lobo does use marijuana daily and denies other substances. Lobo states that he buys cartridges off the street and does not believe what he is smoking is laced with anything but does admit that he cannot be 100% sure. Denies other substance use and only drinks alcohol occasionally. He denies HI and hx of violence/aggression. Denies SIB but describes the "playing out shooting himself" actions as psychologically self-injurious. Lobo is willing and voluntary for psychiatric treatment. Today he apologies repeatedly and seems to have difficulty responding to questions. He reports that things are well with his marriage but that he constantly seeks reassurance from his due to fears of abandonment. He implied that his suicidal thoughts/images due occur while at work. He doesn't feel that his Zoloft is helpful and admits to self medicating with MJ every night on return home from work from 2nd shift. He is also triggered by mandatory overtime and described periods where he must work 7 days a week for weeks at time. He did not endorse any manic symptoms. Past Psychiatric History Current Psychiatric Diagnosis: anxiety, depression, borderline personality disorder (?) Previous Psych Admissions: 03/02--[facility] [place] for similar but more symptoms of pot hyperemesis at that time and was receiving polypharmacy including ADHD medications. Do You Have Access To A Gun?: Yes ( is securing) History of Previous Suicide Attempt: No Past Medication Trials: Seroquel (recent prn for anxiety, too sedating), Paxil, Pristiq (?auth issue, not clear if took), Adderall XR, Adderall, Ritalin, Concerta, propranolol, clonidine, Trileptal, topamax, Celexa, Lamictal, buspar up to 60 mg daily, Ativan. Allergies Allergy/AdvReac Type Severity Reaction Status Date / Time pollen extracts Allergy Intermediate ITCHY Verified 04/28/23 17:02 EYES, SNEEZING, CONGESTION Home Medications Medication Instructions Recorded Confirmed Type cetirizine 10 mg tablet (Zyrtec) 10 mg PO DAILY PRN Congestion 04/28/23 04/28/23 History clonidine 0.1 mg/24 hr weekly 1 patch transdermal WK 04/28/23 04/28/23 History transdermal patch hydroxyzine HCl 10 mg tablet 10 mg PO BID 04/28/23 04/28/23 History sertraline 100 mg tablet 100 mg PO DAILY 04/28/23 04/28/23 History Family History Family History of: Doesn't Know Family Mental Health History Comment: mom and sisters - anxiety Alcohol History Hx of Alcohol Use Over the Past 12 Months: No AUDIT Total Score: 2 Smoking Use Have You Smoked or Used Tobacco Products in the Last 30 Days: Yes tobacco type: smokeless tobacco Smoking Status: Light tobacco smoker Smoking packs per day: 10 Substance History Hx of Prescription Med Misuse Over the Past 12 Months: No Hx of Over the Counter Med Misuse Over the Past 12 Months: No Hx of Inhalent Misuse Over the Past 12 Months: No Hx of Organic Substance Use Over the Past 12 Months: Yes (uses marijuana daily, buys carts off the street) Hx of Illegal Substances/Street Drug Use Over Past 12 Months: Yes (buys marijuana off street) Problems as a Result of Past Substance Use: None Identified Personal History Living Arrangements: Home Highest Grade Completed: College Highest Grade Completed Comment: associates degree Marital Status: Number Of Children: 0 Beliefs That Will Affect Care: None Hx Traumatic Life Events: No (denied) Patient History Medical History (Updated 04/29/23 @ 18:06 by eJn Corea MD) Cannabis use with anxiety disorder ADHD No active medical problems Abdominal pain Suicidal ideation Social History Smoking Status: Light tobacco smoker Tobacco Type: Smokeless Tobacco (Dip or Chew) Preferred Language: Tajik Communication Ability: Effective Head Librarian Required: No Beliefs That Will Affect Care: None Feels Safe at Home: Yes Gender Identity: Male Assistive Devices: None Review of Systems Review of Systems: All systems reviewed & are unremarkable except as noted in HPI & below Physical Exam Psychiatric: Orientation: alert and oriented x 3 Apperance: appropriately dressed and appropriately groomed Eye Contact: + fair eye contact Motor Behavior: no abnormal motor movements Speech: normal rate/rhythm/volume of speech Affect: + depressed affect Mood: + depressed mood Thought Process: + circumstantial thought process Thought Content: reality based without delusions Suicidal Thoughts: + reports suicidal thoughts (actually more obsessive in nature, doesn't want to act) and + reports suicidal plan (denies on unit as no weapons) Homicidal Thoughts: denies homicidal thoughts Hallucinations: no auditory hallucinations and no visual hallucinations Cognition: language grossly intact; + attention not intact Estimated Intelligence: consistent with education level Insight: + limited insight Judgment: + limited judgement Vital Signs (Past 24 Hours): Last Vital Signs Temp 36.3 C L 04/29/23 06:00 Pulse 65 04/29/23 06:48 Resp 16 04/29/23 06:00 BP 127/79 04/29/23 06:48 Pulse Ox 99 04/28/23 19:23 O2 Del Method Room Air 04/28/23 19:23 Exam Statement: A physical exam was performed in the ED by Dr. Sy for the purposes of medical clearance. I accept that physical as correct and adequate for the purposes of the inpatient physical exam. Results & Data ([facility]) Laboratory Results Labs 04/28/23 04/28/23 04/28/23 14:30 14:45 16:20 WBC 6.12 RBC 4.77 Hgb 13.6 L Hct 37.9 L MCV 79.5 L MCH 28.5 MCHC 35.9 RDW Std Deviation 37.1 RDW Coeff of Lyly 13.0 Plt Count 373 MPV 8.9 L Immature Gran % (Auto) 0.7 Neut % (Auto) 67.4 Lymph % (Auto) 22.2 Edwards % (Auto) 5.9 Eos % (Auto) 2.8 Baso % (Auto) 1.0 Neut # (Auto) 4.13 Lymph # (Auto) 1.36 Edwards # (Auto) 0.36 Eos # (Auto) 0.17 Baso # (Auto) 0.06 Immature Gran # (Auto) 0.04 Sodium 136 Potassium 3.9 Chloride 105 Carbon Dioxide 23 Anion Gap 8 BUN 11 Creatinine 0.93 Est Cr Clr Drug Dosing 146.4 Est GFR ( Amer) 132.7 Est GFR (Non-Af Amer) 114.5 BUN/Creatinine Ratio 11.8 Glucose 95 Calcium 9.4 Total Bilirubin 0.6 AST 18 ALT 15 Alkaline Phosphatase 73 Total Protein 8.2 Albumin 4.6 Globulin 3.6 Albumin/Globulin Ratio 1.3 TSH 1.736 Urine Color Yellow Urine Appearance Clear Urine pH 6.0 Ur Specific [place] 1.017 Urine Protein Negative Urine Glucose (UA) Negative Urine Ketones Negative Urine Blood Trace H Urine Nitrite Negative Urine Bilirubin Negative Urine Urobilinogen Negative Ur Leukocyte Esterase Negative Urine WBC (Auto) 1-5 Urine RBC (Auto) 0-4 U Hyaline Cast (Auto) 1-5 U Epithel Cells (Auto) 0-5 Urine Bacteria (Auto) Negative Salicylates < 3.0 L Urine Opiates Screen Neg Ur Methadone, Qual Neg Acetaminophen < 3 L Urine Barbiturates Neg Ur Phencyclidine (PCP) Neg U Amphetamin/Meth Scrn Neg MDMA (Ecstasy) Screen Neg U Benzodiazepines Scrn Neg Ur Cocaine Metabolite Neg U Marijuana (THC) Screen Pos H Ethyl Alcohol mg/dL < 10.0 SARS-CoV-2, RNA, NAAT Cancelled 04/28/23 17:09 WBC RBC Hgb Hct MCV MCH MCHC RDW Std Deviation RDW Coeff of Lyly Plt Count MPV Immature Gran % (Auto) Neut % (Auto) Lymph % (Auto) Edwards % (Auto) Eos % (Auto) Baso % (Auto) Neut # (Auto) Lymph # (Auto) Edwards # (Auto) Eos # (Auto) Baso # (Auto) Immature Gran # (Auto) Sodium Potassium Chloride Carbon Dioxide Anion Gap BUN Creatinine Est Cr Clr Drug Dosing Est GFR ( Amer) Est GFR (Non-Af Amer) BUN/Creatinine Ratio Glucose Calcium Total Bilirubin AST ALT Alkaline Phosphatase Total Protein Albumin Globulin Albumin/Globulin Ratio TSH Urine Color Urine Appearance Urine pH Ur Specific [place] Urine Protein Urine Glucose (UA) Urine Ketones Urine Blood Urine Nitrite Urine Bilirubin Urine Urobilinogen Ur Leukocyte Esterase Urine WBC (Auto) Urine RBC (Auto) U Hyaline Cast (Auto) U Epithel Cells (Auto) Urine Bacteria (Auto) Salicylates Urine Opiates Screen Ur Methadone, Qual Acetaminophen Urine Barbiturates Ur Phencyclidine (PCP) U Amphetamin/Meth Scrn MDMA (Ecstasy) Screen U Benzodiazepines Scrn Ur Cocaine Metabolite U Marijuana (THC) Screen Ethyl Alcohol mg/dL SARS-CoV-2, RNA, NAAT NEGATIVE Laboratory Results - last 24 hr 04/28/23 17:09 SARS-CoV-2, RNA, NAAT NEGATIVE Current Inpatient Medications Current Inpatient Medications: Current Inpatient Medications Acetaminophen (Acetaminophen 325 Mg Tab) 650 mg PO Q4H PRN PRN Reason: Headache or Minor Fever Stop: 05/28/23 18:28 Al Hydrox/Mg Hydrox/Simethicone (Aluminum/Magnesium Susp 30 Ml Udc) 30 ml PO Q4H PRN PRN Reason: GI Upset Stop: 05/28/23 18:28 Bismuth Subsalicylate (Bismuth Subsalicylate Liqd 236 Ml) 15 ml PO PRN PRN PRN Reason: Loose Stool Stop: 05/28/23 18:28 Clonidine HCl (Clonidine Hcl 0.1 Mg/24 Hr Transderm Sys) 1 patch TD Fr@0900 [facility] Stop: 05/30/23 08:59 Hydroxyzine HCl (Hydroxyzine Hcl 25 Mg Tab) 25 mg PO HSZ PRN PRN Reason: Insomnia Stop: 05/28/23 18:28 Hydroxyzine HCl (Hydroxyzine Hcl 25 Mg Tab) 10 mg PO Q4H PRN PRN Reason: Anxiety Stop: 05/28/23 18:28 Magnesium Hydroxide (Magnesium Hydroxide Susp 30 Ml Udc) 30 ml PO DAILY PRN PRN Reason: Constipation Stop: 05/28/23 18:28 Miscellaneous (Remove Nicoderm Patch) 1 each N/A DAILY@0859 [facility] Stop: 05/29/23 08:58 Last Admin: 04/29/23 10:44 Dose: 1 each Miscellaneous (Check Clonidine Patch Placement) 1 each N/A QS [facility] Stop: 05/29/23 15:59 Last Admin: 04/29/23 16:00 Dose: 1 each Miscellaneous (Remove Clonidine Patch) 1 each N/A Fr@0859 [facility] Stop: 05/30/23 08:58 Nicotine (Nicotine 14 Mg/24 Hr Patch) 14 mg TD QAM [facility] Stop: 05/29/23 08:59 Last Admin: 04/29/23 10:41 Dose: 14 mg Nicotine Polacrilex (Nicotine Polacrilex 2 Mg Gum) 2 piece MT PRN PRN PRN Reason: Nicotine Withdrawal Symptoms Stop: 05/28/23 18:28 Last Admin: 04/29/23 10:42 Dose: 2 piece Sertraline HCl (Sertraline Hcl 50 Mg Tablet) 50 mg PO DAILY [facility] Stop: 05/29/23 10:14 Last Admin: 04/29/23 10:47 Dose: 50 mg Sodium Chloride (Sodium Chloride 0.65% Na Soln 45 Ml ([place])) 1 - 2 sprays NA PRN PRN PRN Reason: Nasal Dryness/Congestion Stop: 05/28/23 18:28
[2023-04-29] MEDS: hydrOXYzine HCl 25 MG TAB PO PRN (22:22)
[2023-04-30] MEDS: cloNIDine HCL 0.1 MG/24 HR TRANSDERM SYS TD SCH (08:54)
[2023-04-30] MEDS: ARIPiprazole 5 MG TAB PO ONE (14:34)
--- NOTE | 2023-04-30 16:51 | Psychiatric Progress Note ---
Date of Service April 30, 2023 Impression / Recommendations Impression 22 yo male presenting with recurrent SI in the setting of work related stress, possible dissociative symptoms. Complex presentation as uses MJ regularly and doesn't want to self harm but describes intrusive thoughts, images, excessive apologizing, and other features consistent with OCD. Differential includes early psychotic features with thought blocking, personality disorder, etc. Overall, I spent a total of 40 minutes with this case, including review of chart, review of records, direct evaluation of the patient, counseling the patient, ordering medication, coordination with nursing,risk assessment, and do cumentation. 04/30/23: clearer, doesn't appear thought blocked today. (1) Major depressive disorder with current active episode: (2) Obsessive compulsive disorder: (3) Cannabis use with anxiety disorder: Plan 04/30/23: Risks/benefits/alternatives were reviewed re: antipsychotics for mood (refractory depression with obsessive anxiety). Discussion included but was not limited to metabolic side effects, risks of TD and suicidal thoughts. There were no abnormal motor movements at baseline. Fasting glucose and lipid panel ordered for baseline monitoring. One time dose of Abilify 2.5 mg now with plan for standing dose and further taper of Zoloft per Dr. Dodge. 04/29/23: [facility] q15 min checks (behavioral with suicide precautions) for safety. The patient will participate in group, recreational, and milieu therapies and will be offered additional individual and family sessions as clinically appropriate. Will begin taper of Zoloft. Patient will require brief intervention again around his substance use as complicating his presentation. THC level pending. Inventory Assets Strengths: help seeking, work oriented Needs: improve insight and coping Suicide Risk Level Suicide Risk Level: High-Moderate (q15 min suicide checks) Risk Factors Assessment Male: Yes : Yes Do You Have Access To A Gun?: Yes ( is securing) Mental Health Diagnoses: Yes Substance Use Disorders: Yes (regular cannabis despite impact on mood) Previous Attempt: No Previous Psychiatric Hospitalization: Yes Protective Factors Assessment : Yes Employed: Yes ([employer] in [place]) Interval History Identifying Information SMITHA CADET, "Lobo" is a 22-year-old M from [place], has a history of previous admission to (February 2022), and was admitted on 04/28/23 18:47 on a 201 voluntary commitment for SI with plan. Chief Complaint "I have a lot on my mind, I guess I didn't realize that pot effects me like that." Review of Systems Sleep Information Total Hours of Sleep: 6.5 Meal Information Percent Meal Consumed - Breakfast: 20 Percent Meal Consumed - Lunch: 25 Percent Meal Consumed - Dinner: 50 Subjective Subjective Patient was seen & assessed and interval progress reviewed with treatment team. Appears more alert and engaged in interactions today compared to yesterday when spent more time in room in bed, etc. He gets emotional around contact with his . Continues to apologize alot and is focussed on his FMLA. He doesn't endorse as much in the way of dissociative symptoms and implies that doesn't feel in "virtual reality headset" here, meaning less lost in his thoughts. Reviewed his previous med trials and goals for hospitalization. Physical Exam Psychiatric Orientation: alert and oriented x 3 Apperance: appropriately dressed and appropriately groomed Eye Contact: + fair eye contact Motor Behavior: no abnormal motor movements Speech: normal rate/rhythm/volume of speech Affect: + depressed affect Mood: + depressed mood and + anxious mood Thought Process: + perseveration Thought Content: reality based without delusions Suicidal Thoughts: denies suicidal plan (on unit) and denies suicidal intent; + reports suicidal thoughts (intermittent) Homicidal Thoughts: denies homicidal thoughts Hallucinations: no auditory hallucinations and no visual hallucinations Cognition: language grossly intact; + attention not intact Estimated Intelligence: consistent with education level Insight: + limited insight Judgment: + limited judgement Vital Signs (Past 24 Hours) Last Vital Signs Temp 36.6 C 04/30/23 06:46 Pulse 59 L 04/30/23 06:46 Resp 16 04/30/23 06:46 BP 111/68 04/30/23 06:46 Pulse Ox 99 04/28/23 19:23 O2 Del Method Room Air 04/28/23 19:23 Results & Data ([facility]) Current Inpatient Medications Current Inpatient Medications: Current Inpatient Medications Acetaminophen (Acetaminophen 325 Mg Tab) 650 mg PO Q4H PRN PRN Reason: Headache or Minor Fever Stop: 05/28/23 18:28 Al Hydrox/Mg Hydrox/Simethicone (Aluminum/Magnesium Susp 30 Ml Udc) 30 ml PO Q4H PRN PRN Reason: GI Upset Stop: 05/28/23 18:28 Bismuth Subsalicylate (Bismuth Subsalicylate Liqd 236 Ml) 15 ml PO PRN PRN PRN Reason: Loose Stool Stop: 05/28/23 18:28 Clonidine HCl (Clonidine Hcl 0.1 Mg/24 Hr Transderm Sys) 1 patch TD Fr@0900 [facility] Stop: 05/30/23 08:59 Last Admin: 04/30/23 09:39 Dose: 1 patch Hydroxyzine HCl (Hydroxyzine Hcl 25 Mg Tab) 25 mg PO HSZ PRN PRN Reason: Insomnia Stop: 05/28/23 18:28 Last Admin: 04/29/23 22:22 Dose: 25 mg Hydroxyzine HCl (Hydroxyzine Hcl 25 Mg Tab) 10 mg PO Q4H PRN PRN Reason: Anxiety Stop: 05/28/23 18:28 Magnesium Hydroxide (Magnesium Hydroxide Susp 30 Ml Udc) 30 ml PO DAILY PRN PRN Reason: Constipation Stop: 05/28/23 18:28 Miscellaneous (Remove Nicoderm Patch) 1 each N/A DAILY@0859 [facility] Stop: 05/29/23 08:58 Last Admin: 04/30/23 09:39 Dose: 1 each Miscellaneous (Check Clonidine Patch Placement) 1 each N/A QS [facility] Stop: 05/29/23 15:59 Last Admin: 04/30/23 09:38 Dose: 1 each Miscellaneous (Remove Clonidine Patch) 1 each N/A Fr@0859 [facility] Stop: 05/30/23 08:58 Last Admin: 04/30/23 09:39 Dose: 1 each Nicotine (Nicotine 14 Mg/24 Hr Patch) 14 mg TD QAM [facility] Stop: 05/29/23 08:59 Last Admin: 04/30/23 08:59 Dose: 14 mg Nicotine Polacrilex (Nicotine Polacrilex 2 Mg Gum) 2 piece MT PRN PRN PRN Reason: Nicotine Withdrawal Symptoms Stop: 05/28/23 18:28 Last Admin: 04/30/23 13:05 Dose: 2 piece Sertraline HCl (Sertraline Hcl 50 Mg Tablet) 50 mg PO DAILY [facility] Stop: 05/29/23 10:14 Last Admin: 04/30/23 08:53 Dose: 50 mg Sodium Chloride (Sodium Chloride 0.65% Na Soln 45 Ml ([place])) 1 - 2 sprays NA PRN PRN PRN Reason: Nasal Dryness/Congestion Stop: 05/28/23 18:28 Mental Health & Subst Abuse Tx Therapist Name of Therapist: Harper Vaz
[2023-04-30] MEDS: ACETAMINOPHEN 325 MG TAB PO PRN (23:07)
[2023-05-01 00:22] LABS: Marijuana Quant, GCMS Urine 3163 ng/mL (<5)
[2023-05-01 07:55] LABS: Chol HDL Ratio 6.4 (0-5)
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
[2023-05-01] MEDS: ARIPiprazole 5 MG TAB PO SCH (21:47)
[2023-05-01] MEDS: DULoxetine HCL 30 MG CAP PO SCH (21:48)
[2023-05-02] MEDS: ONDANSETRON 4 MG OD TAB PO STA (04:47)
[2023-05-02] MEDS ORDERED: ONDANSETRON 4 MG OD TAB PO PRN (10:19)
--- NOTE | 2023-05-02 10:27 | Psychiatric Progress Note ---
Date of Service May 02, 2023 Impression / Recommendations Impression 22 yo male presenting with recurrent SI in the setting of work related stress, possible dissociative symptoms. Complex presentation as uses MJ regularly and doesn't want to self harm but describes intrusive thoughts, images, excessive apologizing, and other features consistent with OCD. Differential includes early psychotic features with thought blocking, personality disorder, etc. Overall, I spent a total of 40 minutes with this case. This included meeting with the patient, reviewing the chart, teaching how to do a thought record, nursing report, multidisciplinary team meeting, orders, and documentation. 05/02/23: Patient is having difficulty tolerating the Cymbalta, but he is willing to try it for the next couple of days with some Zofran along with it. Will see how that goes. He is trying hard and we are trying to set up a family meeting soon. (1) Major depressive disorder with current active episode: (2) Obsessive compulsive disorder: (3) Cannabis use with anxiety disorder: Plan 05/02/2023: We will continue with our current level of observation and precautions. Today I taught him how to do a thought record and he is going to practice that whenever his emotions get strong. We will continue with Abilify and duloxetine, but I am also going to add some scheduled Zofran 4 mg at at bedtime to see if we can prevent the nausea. We also have some as needed Zofran available every 6 hours. I encouraged the patient to keep going to groups and activities and he is doing well with that. We will try to set up a family meeting soon. 05/01/2023: We are going to continue with her current level of observation and precautions. We will continue the Abilify at 2.5 mg, but I am going to switch it to bedtime as it is a little bit sedating for the patient. We are also going to initiate a trial of duloxetine 30 mg daily for a few days and then 60 mg daily. I am going to give it at bedtime so that he only has to remember to take medications once a day. I reviewed the uses, side effects, and time course of these meds and he gave informed consent. I encouraged him to keep participating in groups and activities is much as he can. Over the next couple of days, we will taper off the sertraline. 03/22/24: Risks/benefits/alternatives were reviewed re: antipsychotics for mood (refractory depression with obsessive anxiety). Discussion included but was not limited to metabolic side effects, risks of TD and suicidal thoughts. There were no abnormal motor movements at baseline. Fasting glucose and lipid panel ordered for baseline monitoring. One time dose of Abilify 2.5 mg now with plan for standing dose and further taper of Zoloft per Dr. Dodge. 04/29/23: The patient was admitted to the [facility] ([facility] mental health unit) on q15 min checks (behavioral with suicide precautions) for safety. The patient will participate in group, recreational, and milieu therapies and will be offered additional individual and family sessions as clinically appropriate. Will begin taper of Zoloft. Patient will require brief intervention again around his substance use as complicating his presentation. THC level pending. Inventory Assets Strengths: help seeking, work oriented Needs: improve insight and coping Suicide Risk Level Suicide Risk Level: Low (q15 min observation checks) Risk Factors Assessment Male: Yes : Yes Do You Have Access To A Gun?: Yes ( is securing) Mental Health Diagnoses: Yes Substance Use Disorders: Yes (regular cannabis despite impact on mood) Previous Attempt: No Previous Psychiatric Hospitalization: Yes Protective Factors Assessment : Yes Employed: Yes ([employer] in [place]) Interval History Identifying Information SMITHA CADET, "Lobo" is a 22-year-old M from [place], has a history of previous admission to (February 2022), and was admitted on 04/28/23 18:47 on a 201 voluntary commitment for SI with plan. Chief Complaint "I am not handling my stress well." Review of Systems Sleep Information Total Hours of Sleep: 5.25 Sleep Comments: pt awoke x1. pt had emesis and rn aware. pt given med's per rn. pt medication was helpful. pt on q-15 minute checks Meal Information Percent Meal Consumed - Breakfast: 25 Percent Meal Consumed - Lunch: 100 Percent Meal Consumed - Dinner: 50 Subjective Subjective Today I met with the patient, received nursing report, and reviewed his chart. We also had a multidisciplinary team meeting to discuss his care. Lobo is in our hospital due to thoughts of suicide. Staff say that he had an episode of nausea and vomiting last night after he took the Cymbalta for the first time. Zofran helped. He was able to sleep through the rest of the night. He has been attending groups reliably. He had a good visit with his . When I met with the patient today, he told me that he tends to have a sensitive stomach but is never had such bad nausea and vomiting. We decided to give him a preemptive dose of Zofran when he takes the Cymbalta to see if that might help. He talked about the good visit he had with his . We also talked some more about the episode of panic that he had Wednesday after talking with his and I taught him how to do a thought record. He says he often has feelings like he is not good enough and will seek reassurance from people. He denies any suicidal or homicidal thoughts this morning. He says he has been having some occasional's impulses to self-harm but does not think he would do it. Appetite is not so good this morning. Physical Exam Psychiatric Patient was alert and cooperative. Eye contact was good. He was clean and well-groomed. Speech was normal. Mood was "doing better." Affect seemed a little bit brighter today. Thought process was logical and goal-directed. There was no evidence of any hallucinations or delusions. Patient denied any suicidal or homicidal thoughts this morning. Memory and concentration were good. No abnormal movements were seen. Gait was normal. Insight and judgment are impaired. Vital Signs (Past 24 Hours) Last Vital Signs Temp 36.9 C 05/02/23 06:54 Pulse 66 05/02/23 06:55 Resp 16 05/02/23 06:54 BP 123/80 05/02/23 06:55 Pulse Ox 99 04/28/23 19:23 O2 Del Method Room Air 04/28/23 19:23 Results & Data ([facility]) Current Inpatient Medications Current Inpatient Medications: Current Inpatient Medications Acetaminophen (Acetaminophen 325 Mg Tab) 650 mg PO Q4H PRN PRN Reason: Headache or Minor Fever Stop: 05/28/23 18:28 Last Admin: 04/30/23 23:07 Dose: 650 mg Al Hydrox/Mg Hydrox/Simethicone (Aluminum/Magnesium Susp 30 Ml Udc) 30 ml PO Q4H PRN PRN Reason: GI Upset Stop: 05/28/23 18:28 Aripiprazole (Aripiprazole 5 Mg Tab) 2.5 mg PO HS [facility] Stop: 05/31/23 21:59 Last Admin: 05/01/23 21:47 Dose: 2.5 mg Bismuth Subsalicylate (Bismuth Subsalicylate Liqd 236 Ml) 15 ml PO PRN PRN PRN Reason: Loose Stool Stop: 05/28/23 18:28 Clonidine HCl (Clonidine Hcl 0.1 Mg/24 Hr Transderm Sys) 1 patch TD Fr@0900 [facility] Stop: 05/30/23 08:59 Last Admin: 04/30/23 09:39 Dose: 1 patch Duloxetine HCl (Duloxetine Hcl 30 Mg Cap) 30 mg PO HS [facility] Stop: 05/31/23 21:59 Last Admin: 05/01/23 21:48 Dose: 30 mg Hydroxyzine HCl (Hydroxyzine Hcl 25 Mg Tab) 25 mg PO HSZ PRN PRN Reason: Insomnia Stop: 05/28/23 18:28 Last Admin: 04/29/23 22:22 Dose: 25 mg Hydroxyzine HCl (Hydroxyzine Hcl 25 Mg Tab) 10 mg PO Q4H PRN PRN Reason: Anxiety Stop: 05/28/23 18:28 Magnesium Hydroxide (Magnesium Hydroxide Susp 30 Ml Udc) 30 ml PO DAILY PRN PRN Reason: Constipation Stop: 05/28/23 18:28 Miscellaneous (Remove Nicoderm Patch) 1 each N/A DAILY@0859 [facility] Stop: 05/29/23 08:58 Last Admin: 05/02/23 09:09 Dose: 1 each Miscellaneous (Check Clonidine Patch Placement) 1 each N/A QS [facility] Stop: 05/29/23 15:59 Last Admin: 05/02/23 09:10 Dose: 1 each Miscellaneous (Remove Clonidine Patch) 1 each N/A Fr@0859 [facility] Stop: 05/30/23 08:58 Last Admin: 04/30/23 09:39 Dose: 1 each Nicotine (Nicotine 14 Mg/24 Hr Patch) 14 mg TD QAM [facility] Stop: 05/29/23 08:59 Last Admin: 05/02/23 09:07 Dose: 14 mg Nicotine Polacrilex (Nicotine Polacrilex 2 Mg Gum) 2 piece MT PRN PRN PRN Reason: Nicotine Withdrawal Symptoms Stop: 05/28/23 18:28 Last Admin: 05/01/23 21:00 Dose: 1 piece Sertraline HCl (Sertraline Hcl 50 Mg Tablet) 50 mg PO DAILY [facility] Stop: 05/29/23 10:14 Last Admin: 05/02/23 09:07 Dose: 50 mg Sodium Chloride (Sodium Chloride 0.65% Na Soln 45 Ml ([place])) 1 - 2 sprays NA PRN PRN PRN Reason: Nasal Dryness/Congestion Stop: 05/28/23 18:28 Mental Health & Subst Abuse Tx Therapist Name of Therapist: Harper Vaz (1) Major depressive disorder with current active episode Major depression episode severity: severe Major depression recurrence: recurrent Psychotic features: without psychotic features Qualified Code(s): F33.2 - Major depressive disorder, recurrent severe without psychotic features (2) Obsessive compulsive disorder Obsessive-compulsive disorder type: other Qualified Code(s): F42.8 - Other obsessive-compulsive disorder
[2023-05-02] MEDS: ONDANSETRON 4 MG OD TAB PO SCH (21:47)
[2023-05-03] MEDS: SERTRALINE HCL 50 MG TABLET PO SCH (08:49)
--- NOTE | 2023-05-03 12:40 | Discharge Summary ---
Date of Service May 03, 2023 History of Present Illness History reviewed and confirmed as documented by ED CM: Met with Lobo at bedside to complete psychiatric assessment. Lobo endorses suicidal ideation with a plan to shoot himself. Lobo was inpatient at our facility from 03/03- 03/08 of this year. Previous stressors included relationship issues with his then fiancee, now , Sera. Sera is at bedside and has excused herself at Lobo's request. He has been struggling with increasing suicidal thoughts and has "a bunch" of guns at home that he loves. Lobo has history of placing guns that are loaded to his head and in his mouth. He does admit to recently placing one of his guns to his head that was not at the time loaded. His grandfather had secured his guns at the time of his last admission, but he does have possession of them now. Lobo follows with Kristin Temple at [facility], [place] and is prescribed sertraline daily and hydroxyzine PRN. Pt reports increased need for his PRN due to anxiety and panic attacks. He follows with Harper Vaz there for therapy. He had a jonathon ladd appointment today and his therapist advised him to come to the ED for evaluation and treatment following that session. Lobo denies A/V hallucinations but while at work he says it feels like someone has put a VR headset on him and he can just see images of him holding a gun to his head or crashing his car into a tree on repeat. This is very distressing and exhausting to him. He has been sleeping upwards of 8-10 hours and still feeling exhausted. He has little to no appetite and has been having to force himself to eat so that he has enough energy to go to work. 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 Lobo does use marijuana daily and denies other substances. Lobo states that he buys cartridges off the street and does not believe what he is smoking is laced with anything but does admit that he cannot be 100% sure. Denies other substance use and only drinks alcohol occasionally. He denies HI and hx of violence/aggression. Denies SIB but describes the "playing out shooting himself" actions as psychologically self-injurious. Lobo is willing and voluntary for psychiatric treatment. Today he apologies repeatedly and seems to have difficulty responding to questions. He reports that things are well with his marriage but that he constantly seeks reassurance from his due to fears of abandonment. He implied that his suicidal thoughts/images due occur while at work. He doesn't feel that his Zoloft is helpful and admits to self medicating with MJ every night on return home from work from 2nd shift. He is also triggered by mandatory overtime and described periods where he must work 7 days a week for weeks at time. He did not endorse any manic symptoms. Physical Exam Psychiatric Patient was alert and cooperative. Eye contact was good. He was clean and well-groomed. Speech was normal. Mood was ""good." Affect is bright. Thought process was logical and goal-directed. There was no evidence of any hallucinations or delusions. Patient denied any suicidal or homicidal thoughts this morning. Memory and concentration were good. No abnormal movements were seen. Gait was normal. Insight and judgment are impaired. Vital Signs (Past 24 Hours) Last Vital Signs Temp 36.6 C 05/03/23 06:50 Pulse 65 05/03/23 06:50 Resp 16 05/03/23 06:50 BP 118/83 05/03/23 06:50 Pulse Ox 99 04/28/23 19:23 O2 Del Method Room Air 04/28/23 19:23 Principal Diagnosis Major Depressive Disorder, recurrent, severe, without psychosis Psychiatric Data Patient was admitted here for safety, further evaluation, and treatment. He took part in our therapeutic milieu, attended groups and activities, maintain good hygiene, and try not to isolate. He did an excellent job attending groups and activities. Dr. Corea started him on aripiprazole 2.5 mg daily on April 29. I met with the patient on April 30 and we added some low-dose Cymbalta and continue to taper off the sertraline. The first night that he took Cymbalta, he had nausea and vomiting which was helped by Zofrcheyenne ODT. After that, we gave him 4 mg of Zofran with his Cymbalta and that seemed to take care of the problem. He no longer had any nausea or vomiting. Family meeting is going to take place this afternoon. I expect it will go well. The patient has been denying suicidal ideation pretty much since he got here. We have also seen a big improvement in his affect. He is much brighter and very interactive with his peers. He is also been having good visits and phone calls with his . Day of Discharge Assessment Today the patient voices readiness for discharge. They note improvement in mood and deny thoughts to harm self or others. Thoughts remain organized and they are improved from admission. There is no evidence of psychosis. They agree to take mediations as prescribed and keep follow-up appointments. They are stable for discharge to outpatient level of care. Transition of Care Transition Of Care Record: was reviewed with the patient Advance Directives Advance Directives Information Provided: Yes Advance Directives: No Mental Health Advance Directive: No Advance Directives on File: No Living Will: No Power of Appraisal Technician: No Advance Directives Reason:: Declines as Mental Health Visit. Risk Factors Assessment Male: Yes : Yes Do You Have Access To A Gun?: Yes ( is securing) Mental Health Diagnoses: Yes Substance Use Disorders: Yes (regular cannabis despite impact on mood) Previous Attempt: No Previous Psychiatric Hospitalization: Yes Protective Factors Assessment : Yes Employed: Yes ([employer] in [place]) Discharge Data Lab Results 04/28/23 04/28/23 04/28/23 14:30 14:45 16:20 WBC 6.12 RBC 4.77 Hgb 13.6 L Hct 37.9 L MCV 79.5 L MCH 28.5 MCHC 35.9 RDW Std Deviation 37.1 RDW Coeff of Lyly 13.0 Plt Count 373 MPV 8.9 L Immature Gran % (Auto) 0.7 Neut % (Auto) 67.4 Lymph % (Auto) 22.2 Dickenson % (Auto) 5.9 Eos % (Auto) 2.8 Baso % (Auto) 1.0 Neut # (Auto) 4.13 Lymph # (Auto) 1.36 Dickenson # (Auto) 0.36 Eos # (Auto) 0.17 Baso # (Auto) 0.06 Immature Gran # (Auto) 0.04 Sodium 136 Potassium 3.9 Chloride 105 Carbon Dioxide 23 Anion Gap 8 BUN 11 Creatinine 0.93 Est Cr Clr Drug Dosing 146.4 Est GFR ( Amer) 132.7 Est GFR (Non-Af Amer) 114.5 BUN/Creatinine Ratio 11.8 Glucose 95 Fasting Glucose Calcium 9.4 Total Bilirubin 0.6 AST 18 ALT 15 Alkaline Phosphatase 73 Total Protein 8.2 Albumin 4.6 Globulin 3.6 Albumin/Globulin Ratio 1.3 Triglycerides Cholesterol LDL Cholesterol, Calc VLDL Cholesterol, Calc HDL Cholesterol Cholesterol/HDL Ratio TSH 1.736 Urine Color Yellow Urine Appearance Clear Urine pH 6.0 Ur Specific Ringgold 1.017 Urine Protein Negative Urine Glucose (UA) Negative Urine Ketones Negative Urine Blood Trace H Urine Nitrite Negative Urine Bilirubin Negative Urine Urobilinogen Negative Ur Leukocyte Esterase Negative Urine WBC (Auto) 1-5 Urine RBC (Auto) 0-4 U Hyaline Cast (Auto) 1-5 U Epithel Cells (Auto) 0-5 Urine Bacteria (Auto) Negative Salicylates < 3.0 L Urine Opiates Screen Neg Ur Methadone, Qual Neg Acetaminophen < 3 L Urine Barbiturates Neg Ur Phencyclidine (PCP) Neg U Amphetamin/Meth Scrn Neg MDMA (Ecstasy) Screen Neg U Benzodiazepines Scrn Neg Ur Cocaine Metabolite Neg U Marijuana (THC) Screen Pos H U Marijuana THC Carboxy 3163 H Drug Screen Comment SEE NOTE Ethyl Alcohol mg/dL < 10.0 SARS-CoV-2, RNA, NAAT Cancelled 04/28/23 05/01/23 17:09 07:16 WBC RBC Hgb Hct MCV MCH MCHC RDW Std Deviation RDW Coeff of Lyly Plt Count MPV Immature Gran % (Auto) Neut % (Auto) Lymph % (Auto) Dickenson % (Auto) Eos % (Auto) Baso % (Auto) Neut # (Auto) Lymph # (Auto) Dickenson # (Auto) Eos # (Auto) Baso # (Auto) Immature Gran # (Auto) Sodium Potassium Chloride Carbon Dioxide Anion Gap BUN Creatinine Est Cr Clr Drug Dosing Est GFR ( Amer) Est GFR (Non-Af Amer) BUN/Creatinine Ratio Glucose Fasting Glucose 88 Calcium Total Bilirubin AST ALT Alkaline Phosphatase Total Protein Albumin Globulin Albumin/Globulin Ratio Triglycerides 100 Cholesterol 224 H LDL Cholesterol, Calc 169 VLDL Cholesterol, Calc 20 HDL Cholesterol 35 Cholesterol/HDL Ratio 6.4 H TSH Urine Color Urine Appearance Urine pH Ur Specific Ringgold Urine Protein Urine Glucose (UA) Urine Ketones Urine Blood Urine Nitrite Urine Bilirubin Urine Urobilinogen Ur Leukocyte Esterase Urine WBC (Auto) Urine RBC (Auto) U Hyaline Cast (Auto) U Epithel Cells (Auto) Urine Bacteria (Auto) Salicylates Urine Opiates Screen Ur Methadone, Qual Acetaminophen Urine Barbiturates Ur Phencyclidine (PCP) U Amphetamin/Meth Scrn MDMA (Ecstasy) Screen U Benzodiazepines Scrn Ur Cocaine Metabolite U Marijuana (THC) Screen U Marijuana THC Carboxy Drug Screen Comment Ethyl Alcohol mg/dL SARS-CoV-2, RNA, NAAT NEGATIVE Hospital Course (1) Major depressive disorder with current active episode: (2) Obsessive compulsive disorder: (3) Cannabis use with anxiety disorder: Plan 05/03/2023: The patient will likely discharge today after the family meeting if it goes well enough. He will need to be followed with outpatient psychiatric care. Remaining on the aripiprazole, he will also need to be monitored for his lipids over time. At this time, we do not feel the patient is an acute danger to himself or others. Today I spent 46 minutes on the case. This included meeting with the patient, reviewing the chart, nursing report, multidisciplinary treatment team meeting, orders, and documentation. 05/02/2023: We will continue with our current level of observation and precautions. Today I taught him how to do a thought record and he is going to practice that whenever his emotions get strong. We will continue with Abilify and duloxetine, but I am also going to add some scheduled Zofran 4 mg at at bedtime to see if we can prevent the nausea. We also have some as needed Zofran available every 6 hours. I encouraged the patient to keep going to groups and activities and he is doing well with that. We will try to set up a family meeting soon. 05/01/2023: We are going to continue with her current level of observation and precautions. We will continue the Abilify at 2.5 mg, but I am going to switch it to bedtime as it is a little bit sedating for the patient. We are also going to initiate a trial of duloxetine 30 mg daily for a few days and then 60 mg daily. I am going to give it at bedtime so that he only has to remember to take medications once a day. I reviewed the uses, side effects, and time course of these meds and he gave informed consent. I encouraged him to keep participating in groups and activities is much as he can. Over the next couple of days, we will taper off the sertraline. 04/30/23: Risks/benefits/alternatives were reviewed re: antipsychotics for mood (refractory depression with obsessive anxiety). Discussion included but was not limited to metabolic side effects, risks of TD and suicidal thoughts. There were no abnormal motor movements at baseline. Fasting glucose and lipid panel ordered for baseline monitoring. One time dose of Abilify 2.5 mg now with plan for standing dose and further taper of Zoloft per Dr. Dodge. 04/29/23: The patient was admitted to the [facility] ([facility]) on q15 min checks (behavioral with suicide precautions) for safety. The patient will participate in group, recreational, and milieu therapies and will be offered additional individual and family sessions as clinically appropriate. Will begin taper of Zoloft. Patient will require brief intervention again around his substance use as complicating his presentation. THC level pending. Mental Health & Subst Abuse Tx Psychiatrist Name of Psychiatrist: Tomas Allen Psychiatrist's Date Of Appointment With Psychiatric Provider: 05/17/2023 Time of Appointment with Psychiatrist: 11:15am Psychiatric Appointment Comment: [address] [place] [address] Therapist Name of Therapist: Sonia Vaz Therapist's Date of Therapist Appointment: 05/10/2023 Time of Therapist Appointment: 8am Therapy Appointment Comment: Telehealth Post Discharge Appointments Primary Care Physician Name Of Family Doctor/PCP: No PCP Time of Appointment with PCP: please establish PCP as needed Discharge Plan Discharge Items Patient Disposition: Home - Self-Care Reason For Visit: MDD Discharge Diagnosis: Major depressive disorder, recurrent, severe, without psychosis Activity: Per Instructions section Non-emergency contact: Primary Care Provider, Psychiatrist and Therapist Call non-emergency contact if: you have any medication questions and your symptoms worsen Follow-up/Referrals: PCP,NO [Primary Care Provider] - Diet: Regular Addtl Attending Provider Instructions: SPECIAL CARE INSTRUCTIONS: 1. Follow through with your scheduled aftercare appointments. If unable to keep an appointment, please call to reschedule. 2. Take your medication only as prescribed. Medication should not be changed or stopped without the approval of your doctor. In the event of worsening symptoms or concerns about side effects, contact your doctor immediately. 3. Utilize new healthy coping skills, anger management skills, and stress management skills learned during your hospitalization. Journal feelings and process them with a support person. Identify stressors or situations that may result in relapse, deterioration or inappropriate behaviors and develop a plan to deal with those issues. 4. If your coping skills are ineffective and you are in crisis, contact your outpatient providers for direction. If unable to reach your providers, please call the [facility] CRISIS LINE AT , go to the [facility] walk-in center at [address], [address], [place], or go to the closest Emergency Room. 5. Avoid alcohol and un-prescribed drugs. 6. You have been provided with the Mental Health Advance Directives Pamphlet for your review. 7. Your condition is stable for discharge to outpatient level of care, but recovery is an ongoing process. Ifthoughts to harm yourself or others return, follow the safety plan developed during your stay. Planning for a safe return home includes securing weapons. Our treatment team recommends weaponsbe removed from the home until your outpatient provider reassesses your progress. In rare cases where the items themselvescannot be removed, guns and ammunitionshould be secured separatelyand keys stored by a reliable personoutside of the home. If you were admitted on an involuntary commitment, the police or other legal authorities may be involved in this process. 8. Patient is not to work overtime until he has met with his outpatient ps ychiatric provider. Patient is not going to work on days of therapy or medication management appointments. AFTERCARE APPOINTMENTS: * Please call your insurance company prior to your scheduled appointment to confirm your aftercare providers are covered. Take your insurance information to your appointments. WHO TO CALL AND WHEN: Medical Emergencies: For questions or emergencies related to your hospital stay, please contact the Inpatient Behavioral Health Unit at [phone]. A biochemistry technician is on-call 31/08 for the Behavioral Health Unit for emergencies At any time you feel your situation is an emergency, you may also call 911 immediately. Pending Studies at Discharge: No Stand-Alone Forms: [employer], Smoking Cessation, Suicide Prevention Resources Medications and DC Order Prescriptions: New aripiprazole [Abilify] 5 mg Tablet 2.5 mg PO DAILY Qty: 15 0RF duloxetine 30 mg Capsule,Delayed Release(Dr/Ec) 30 mg PO DAILY Qty: 5 0RF duloxetine 60 mg capsule,delayed release(DR/EC) 60 mg PO DAILY Qty: 25 0RF Rx Instructions: Start on day after patient finishes 30 mg caps. ondansetron 4 mg Tablet,Disintegrating 4 mg PO DAILY Qty: 15 0RF Rx Instructions: Take with duloxetine Continued cetirizine [Zyrtec] 10 mg Tablet 10 mg PO DAILY PRN (Reason: Congestion) sertraline 100 mg tablet 100 mg PO DAILY hydroxyzine HCl 10 mg tablet 10 mg PO BID clonidine 0.1 mg/24 hr patch weekly 1 patch transdermal WK Rx Instructions: SUNDAYS Discharge Orders: Discharge Order (Routine); Ordered 05/03/23 Ordered By: Adolfo Dodge Jr Admission Data Admit Date/Time: 04/28/23 18:47 Attending Provider: Adolfo Dodge Jr Admit Provider: Jen Corea Primary Care Provider: PCP,DIANE Coding Level of Care Code 81810 D/C day mgmt > 30 min Diagnoses Severe episode of recurrent major depressive disorder, without psychotic features F33.2 Major depression recurrence: recurrent Major depression episode severity: severe Psychotic features: without psychotic features Other obsessive-compulsive disorders F42.8 Obsessive-compulsive disorder type: other Cannabis use with anxiety disorder F12.980
== END 2023-05-03 15:13 | disposition home or self-care (01) | DRG 885 ==
LOC: ED 14:01 → SUATTDRO 18:47 → 3S 18:47

== ENCOUNTER 2023-09-08 14:23 | Inpatient (IN) ==
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
[2023-09-08 15:25] LABS: Basophils # (auto) 0.08 K/uL (0.00-0.20); Eosinophils # (auto) 0.34 K/uL (0.00-0.50); Eosinophils % (auto) 4.2 %; Hematocrit (blood only) 42.4 % (42.0-52.0); Hemoglobin 14.6 g/dl (14.0-18.0); Immature Granulocytes # (auto) 0.05 K/uL (0.01-0.20); Immature Granulocytes % (auto) 0.6 %; Lymphocytes # (auto) 1.89 K/uL (1.20-3.40); Lymphocytes % (auto) 23.1 %; Mean Corpuscular Hgb Conc 34.4 g/dL (32.0-36.0); Mean Corpuscular Volume 84.1 fL (80.0-100.0); Mean Platelet Volume 9.3 fL (9.4-12.4); Monocytes # (auto) 0.48 K/uL (0.11-0.59); Monocytes % (auto) 5.9 %; Neutrophils # (auto) 5.35 K/uL (1.40-6.50); Neutrophils % (auto) 65.2 %; Platelet Count 339 K/uL (130-400); RDW Coefficient of Variation 13.2 % (11.5-14.5); RDW Standard Deviation 40.3 fL (36.4-46.3); Red Blood Count 5.04 M/uL (4.70-6.10); White Blood Count 8.19 K/ul (4.8-10.8)
[2023-09-08 15:34] LABS: Appearance Urine Clear (Clear); Bilirubin Urine Negative (Negative); Blood Urine Negative (Negative); Color Urine Yellow; Glucose Urine UA Negative (Negative); Ketones Urine Negative (Negative); Leukocyte Esterase Urine Negative (Negative); Nitrite Urine Negative (Negative); Protein Urine Negative (Negative); Specific Gravity Urine 1.018 (1.000-1.030); Urobilinogen Urine Negative (Negative)
[2023-09-08 15:38] LABS: Est GFR (African American) 138.1 ml/min; Potassium 4.2 mmol/L (3.5-5.1)
[2023-09-08 15:39] LABS: Albumin Globulin Ratio 1.5 (0.9-2); Albumin Level 4.6 gm/dl (3.4-5.0); BUN Creatinine Ratio 12.2 (10-20); Bilirubin,Total 0.4 mg/dl (0.2-1.0); Calcium 9.2 mg/dl (8.6-10.3); Creatinine Clr Calc Pharmacy 155.9 ml/min; Est GFR (Non-African American) 119.1 ml/min; Globulin 3.1 gm/dl (2.5-4.0); Total Protein 7.7 gm/dl (6.0-8.3)
[2023-09-08 15:53] LABS: Thyroid Stimulating Hormone 3.431 uIu/ml (0.300-4.500)
[2023-09-08 16:15] LABS: Amphetamines+Metham, Urine Neg (Neg); Barbiturates, Urine Neg (Neg); Benzodiazepine, Urine Neg (Neg); Cocaine, Urine Neg (Neg); Fentanyl, Urine Neg (Neg); MDMA (Ecstacy), Urine Neg (Neg); Marijuana, Urine Pos (Neg); Methadone, Urine Neg (Neg); Opiate, Urine Neg (Neg); Phencyclidine, Urine Neg (Neg)
[2023-09-08] MEDS: ONDANSETRON 4 MG OD TAB PO STA (17:00)
[2023-09-08 17:41] LABS: Acetaminophen < 3 ug/ml (10-30); Salicylate < 3.0 mg/dl (3.0-30)
--- NOTE | 2023-09-08 20:52 | Emergency Department Note ---
ED Visit Note Patient was signed out to me at change of shift by Dr. Rajput, pending evaluation by [facility]. for inpatient admission under 201 for suicidal thoughts. Patient was accepted for inpatient care to [facility] 201 form was signed by myself. Patient was transferred to the behavioral health unit in stable condition for further care. .
[2023-09-08] MEDS ORDERED: ALUMINUM/MAGNESIUM SUSP 30 ML UDC PO PRN (21:26)
[2023-09-08] MEDS ORDERED: SODIUM CHLORIDE 0.65% NA SOLN 45 ML (OCEAN) PRN (21:26)
[2023-09-08] MEDS ORDERED: BISMUTH SUBSALICYLATE LIQD 236 ML PO PRN (21:26)
[2023-09-08] MEDS ORDERED: ACETAMINOPHEN 325 MG TAB PO PRN (21:26)
[2023-09-08] MEDS ORDERED: MAGNESIUM HYDROXIDE SUSP 30 ML UDC PO PRN (21:26)
[2023-09-08] MEDS ORDERED: hydrOXYzine HCl 25 MG TAB PO PRN (21:26)
[2023-09-08] MEDS: LORazepam 0.5 MG TAB PO SCH (21:48)
[2023-09-08] MEDS: NICOTINE POLACRILEX 2 MG GUM MT PRN (21:48)
[2023-09-08] MEDS: CHECK CLONIDINE PATCH PLACEMENT SCH (23:24)
[2023-09-09] MEDS: CETIRIZINE HCL 10 MG TABLET PO SCH (09:03)
[2023-09-09] MEDS: ARIPiprazole 5 MG TAB PO SCH (09:03)
[2023-09-09] MEDS: VENLAFAXINE HCL XR 150 MG CAPXR PO SCH (09:04)
[2023-09-09] MEDS: cloNIDine HCL 0.1 MG/24 HR TRANSDERM SYS TD SCH (11:18)
[2023-09-09] MEDS: ARIPiprazole 5 MG TAB PO ONE (12:22)
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
[2023-09-09] MEDS: PROPRANOLOL HCL 10 MG TAB PO PRN (19:35)
[2023-09-10] MEDS: ARIPiprazole 5 MG TAB PO SCH (08:26)
[2023-09-10 08:36] LABS: Estimated Average Glucose 114 mg/dl; Hemoglobin A1C 5.6 % (4.5-5.6)
--- NOTE | 2023-09-10 09:04 | Psychiatric Progress Note ---
Date of Service September 10, 2023 Impression / Recommendations Impression 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 He was admitted on 09/08/23 20:42 on a 201 voluntary commitment. Diagnostically consistent with MDD and OCD and JAENETTE. A: Ongoing anxiety and obsessions and compulsions including frequent need to seek reassurance and checking rituals which he reports are similar to what he does with his outside of the hospital. Reviewed labwork notable for elevated cholesterol but abilify still deemed to be safe to use, especially given level of distress from his obsessions. Vit D low, he is agreeable to starting supplementation for this. He consents to increasing Effexor to further target depression and OCD. He also consents to starting mirtazapine for depression, insomnia, anxiety reviewed side effects including but not limited to: sedation, increased appetite, weight gain. Symptom questionnaires consistent with OCD, traumatic experiences. Would likely benefit from IOP and ERP. MNPR due to trauma history, cannot tolerate a roommate. Overall, I spent a total of 45 minutes on this case including meeting with the patient, reviewing the chart, nursing report, multidisciplinary team meeting, orders, and documentation. (1) Suicidal ideation: (2) Complex posttraumatic stress disorder: (3) Major depressive disorder with current active episode: (4) Cannabis use with anxiety disorder: (5) Obsessive behavior: (6) Panic attacks: Plan 09/10/2023: -Start mirtazapine 15mg HS -Increase Effexor XR to 225mg tomorrow -Continue Abilify 5mg daily -Decrease lorazepam to 0.25mg HS given limited effect -Vit D supplementation 09/09/2023:The patient was admitted to the [facility] ([facility] mental health unit) on q15 min checks (behavioral with suicide precautions) for safety. The patient will participate in group, recreational, and milieu therapies and will be offered additional individual and family sessions as clinically appropriate. Increase Abilify to 5 mg daily. Continue home clonidine 0.1 mg weekly patch and Effexor 150 mg daily. Continue lorazepam 0.5 mg at bedtime for sleep and plan to discontinue prior to discharge. Lab work ordered: A1c B12 vitamin D. Administer YBOCS, international trauma questionnaire, dissociative symptoms scale, adverse child experiences questionnaire. Inventory Assets Strengths: family support, employement Needs: medication management, outpatient counseling Suicide Risk Level Suicide Risk Level: Moderate (q15 min suicide checks) (SI with plan prior to admission and depression but feels safe in the hospital, feels able to ask for support ) Risk Factors Assessment Male: Yes : Yes Do You Have Access To A Gun?: Yes ( secured guns) Health Problems: No Mental Health Diagnoses: Yes Substance Use Disorders: Yes Previous Attempt: Yes Family History of Suicide: No Previous Psychiatric Hospitalization: Yes Hopelessness: Yes Protective Factors Assessment Yarsanism Beliefs: No : Yes Employed: Yes ([employer] -intermittent FMLA) Stable Relationships: Yes Supportive Family: Yes Good Rapport with Provider: Yes Absence of Any Risk Factors Above: No Interval History Identifying Information 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 He was admitted on 09/08/23 20:42 on a 201 voluntary commitment. Chief Complaint "I feel like I'm doing everything wrong". Review of Systems Sleep Information Total Hours of Sleep: 5.75 Meal Information Percent Meal Consumed - Breakfast: 50 Percent Meal Consumed - Lunch: 75 Percent Meal Consumed - Dinner: 50 Subjective Subjective Patient was seen & assessed and interval progress reviewed with treatment team nursing and social work. Has been attending groups. Required prn medication during visit with his yesterday due to increased anxiety. A lot of fears of abandonment. Today reports his mood is "not good, struggling with my head a lot" and expresses multiple anxious worries and concerns including fear he is doing things "wrong", high stress and overwhelmed by his family's suggestion that he take a break from his job to focus on therapy. He denies any specific medication side effects. Struggling with sleep. Physical Exam Psychiatric Orientation: alert and oriented x 3 Apperance: appropriately dressed and appropriately groomed Eye Contact: + fair eye contact Motor Behavior: no abnormal motor movements Speech: normal rate/rhythm/volume of speech Affect: + anxious affect and + tearful affect Mood: + depressed mood and + anxious mood Thought Process: + perseveration Thought Content: + preoccupation, + obsessions, + cognitive distortions and + compulsions Suicidal Thoughts: + reports suicidal thoughts Homicidal Thoughts: denies homicidal thoughts Hallucinations: no auditory hallucinations and no visual hallucinations Insight: + fair insight Judgment: + limited judgement Vital Signs (Past 24 Hours) Last Vital Signs Temp 36.2 C L 09/10/23 06:38 Pulse 62 09/10/23 06:39 Resp 18 09/10/23 06:38 BP 117/74 09/10/23 06:39 Pulse Ox 100 09/08/23 21:34 O2 Del Method Room Air 09/08/23 21:34 Results & Data ([facility]) Laboratory Results Laboratory Results - last 24 hr 09/10/23 07:55 Estimat Average Glucose 114 Hemoglobin A1c 5.6 Vitamin B12 224 25-OH Vitamin D Total Pending Current Inpatient Medications Current Inpatient Medications: Current Inpatient Medications Acetaminophen (Acetaminophen 325 Mg Tab) 650 mg PO Q4H PRN PRN Reason: Headache or Minor Fever Stop: 10/08/23 21:25 Al Hydrox/Mg Hydrox/Simethicone (Aluminum/Magnesium Susp 30 Ml Udc) 30 ml PO Q4H PRN PRN Reason: GI Upset Stop: 10/08/23 21:25 Aripiprazole (Aripiprazole 5 Mg Tab) 5 mg PO QAM [facility] Stop: 10/10/23 08:59 Last Admin: 09/10/23 08:26 Dose: 5 mg Bismuth Subsalicylate (Bismuth Subsalicylate Liqd 236 Ml) 15 ml PO PRN PRN PRN Reason: Loose Stool Stop: 10/08/23 21:25 Cetirizine HCl (Cetirizine Hcl 10 Mg Tablet) 10 mg PO QAM [facility] Stop: 10/09/23 08:59 Last Admin: 09/10/23 08:26 Dose: 10 mg Clonidine HCl (Clonidine Hcl 0.1 Mg/24 Hr Transderm Sys) 1 patch TD Q7D@0900 [facility] Stop: 10/09/23 10:14 Last Admin: 09/09/23 11:18 Dose: 1 patch Hydroxyzine HCl (Hydroxyzine Hcl 25 Mg Tab) 50 mg PO HSZ PRN PRN Reason: Insomnia Stop: 10/08/23 21:25 Hydroxyzine HCl (Hydroxyzine Hcl 25 Mg Tab) 25 mg PO Q4H PRN PRN Reason: Anxiety Stop: 10/08/23 21:25 Lorazepam (Lorazepam 0.5 Mg Tab) 0.5 mg PO HS [facility] Stop: 10/08/23 21:59 Last Admin: 09/09/23 21:15 Dose: 0.5 mg Magnesium Hydroxide (Magnesium Hydroxide Susp 30 Ml Udc) 30 ml PO DAILY PRN PRN Reason: Constipation Stop: 10/08/23 21:25 Miscellaneous (Remove Clonidine Patch) 1 each N/A CQWK [facility] Stop: 10/15/23 08:59 Miscellaneous (Check Clonidine Patch Placement) 1 each N/A QS [facility] Stop: 10/09/23 00:00 Last Admin: 09/10/23 08:23 Dose: 1 each Nicotine Polacrilex (Nicotine Polacrilex 2 Mg Gum) 1 piece MT PRN PRN PRN Reason: smoking cessation Stop: 10/08/23 21:37 Last Admin: 09/09/23 17:29 Dose: 1 piece Propranolol HCl (Propranolol Hcl 10 Mg Tab) 10 mg PO BID PRN PRN Reason: Anxiety Stop: 10/09/23 08:59 Last Admin: 09/09/23 19:35 Dose: 10 mg Sodium Chloride (Sodium Chloride 0.65% Na Soln 45 Ml ([place])) 1 - 2 sprays NA PRN PRN PRN Reason: Nasal Dryness/Congestion Stop: 10/08/23 21:25 Venlafaxine HCl (Venlafaxine Hcl Xr 150 Mg Capxr) 150 mg PO QAM [facility] Stop: 10/09/23 08:59 Last Admin: 09/10/23 08:26 Dose: 150 mg Mental Health & Subst Abuse Tx Psychiatrist Name of Psychiatrist: Wen Bourne Psychiatrist's Date Of Appointment With Psychiatric Provider: 10/04/23 Time of Appointment with Psychiatrist: [id number] Therapist Name of Therapist: Wen Therapist's Date of Therapist Appointment: 10/06/23 Time of Therapist Appointment: [id number] Online Trader Name of Online Trader: None (3) Major depressive disorder with current active episode Major depression episode severity: severe Major depression recurrence: recurrent Psychotic features: without psychotic features Qualified Code(s): F33.2 - Major depressive disorder, recurrent severe without psychotic features
[2023-09-10] MEDS ORDERED: LORazepam 0.5 MG TAB PO PRN (16:26)
[2023-09-10] MEDS: MIRTAZAPINE TAB 15 MG TAB PO SCH (21:10)
[2023-09-10 22:12] LABS: Marijuana Quant, GCMS Urine 1527 ng/mL (<5)
[2023-09-11] MEDS: CHOLECALCIFEROL 125 MCG (5,000 UNITS) TAB PO SCH (08:36)
[2023-09-11] MEDS: VENLAFAXINE HCL XR 75 MG CAPXR PO SCH (08:37)
--- NOTE | 2023-09-11 09:33 | Psychiatric Progress Note ---
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 He was admitted on 09/08/23 20:42 on a 201 voluntary commitment. Diagnostically consistent with MDD and OCD and JEANETTE. A: Some improvement in his mood and OCD symptoms today, still with prominent anxiety and self-doubt but processing this with staff and seeking support. Tolerating medication changes so far, benefited significantly from addition of mirtazapine last night. MNPR due to trauma history, cannot tolerate a roommate. Overall, I spent a total of 25 minutes on this case including meeting with the patient, reviewing the chart, nursing report, multidisciplinary team meeting, orders, and documentation. (1) Suicidal ideation: (2) Complex posttraumatic stress disorder: (3) Major depressive disorder with current active episode: (4) Cannabis use with anxiety disorder: (5) Obsessive behavior: (6) Panic attacks: Plan 09/11/2023: Continue current medications and tx plan. 09/10/2023: -Start mirtazapine 15mg HS -Increase Effexor XR to 225mg tomorrow -Continue Abilify 5mg daily -Decrease lorazepam to 0.25mg HS given limited effect -Vit D supplementation 09/09/2023:The patient was admitted to the [facility] ([facility] mental health unit) on q15 min checks (behavioral with suicide precautions) for safety. The patient will participate in group, recreational, and milieu therapies and will be offered additional individual and family sessions as clinically appropriate. Increase Abilify to 5 mg daily. Continue home clonidine 0.1 mg weekly patch and Effexor 150 mg daily. Continue lorazepam 0.5 mg at bedtime for sleep and plan to discontinue prior to discharge. Lab work ordered: A1c B12 vitamin D. Administer YBOCS, international trauma questionnaire, dissociative symptoms scale, adverse child experiences questionnaire. Inventory Assets Strengths: family support, employement Needs: medication management, outpatient counseling Suicide Risk Level Suicide Risk Level: Moderate (q15 min suicide checks) (SI with plan prior to admission and depression but feels safe in the hospital, feels able to ask for support ) Risk Factors Assessment Male: Yes : Yes Do You Have Access To A Gun?: Yes ( secured guns) Health Problems: No Mental Health Diagnoses: Yes Substance Use Disorders: Yes Previous Attempt: Yes Family History of Suicide: No Previous Psychiatric Hospitalization: Yes Hopelessness: Yes Protective Factors Assessment Protestant Beliefs: No : Yes Employed: Yes ([employer] -intermittent FMLA) Stable Relationships: Yes Supportive Family: Yes Good Rapport with Provider: Yes Absence of Any Risk Factors Above: No Interval History Identifying Information 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 He was admitted on 09/08/23 20:42 on a 201 voluntary commitment. Chief Complaint "I woke up really good". Review of Systems Sleep Information Total Hours of Sleep: 7.75 Meal Information Percent Meal Consumed - Breakfast: 100 Percent Meal Consumed - Lunch: 75 Percent Meal Consumed - Dinner: 75 Subjective Subjective Patient was seen & assessed and interval progress reviewed with treatment team nursing and social work. Ruminating a lot. Remains very anxious. Attending groups. Last evening rated his mood as "odd". Slept well overnight. Less anxiety this morning and felt some improvement in his mood. Worries this might be a sign of "shawna". Reviewed history and he confirmed no history of BPAD nor shawna, was using this term to describe feeling more energetic and happier. Still with periods of ruminative anxiety, heightened this morning after calling a friend. Has some guilt about missing a friend's republican. No medication side effects. Physical Exam Psychiatric Orientation: alert and oriented x 3 Apperance: appropriately dressed and appropriately groomed Eye Contact: + fair eye contact Motor Behavior: no abnormal motor movements Speech: normal rate/rhythm/volume of speech Affect: + anxious affect Mood: + depressed mood and + anxious mood Thought Process: + perseveration Thought Content: + preoccupation, + cognitive distortions and reality based without delusions Suicidal Thoughts: denies suicidal thoughts Homicidal Thoughts: denies homicidal thoughts Hallucinations: no auditory hallucinations and no visual hallucinations Insight: + fair insight Judgment: + fair judgement Vital Signs (Past 24 Hours) Last Vital Signs Temp 36.1 C L 09/11/23 06:58 Pulse 78 09/11/23 06:58 Resp 16 09/11/23 06:58 BP 128/91 09/11/23 07:04 Pulse Ox 97 09/11/23 06:58 O2 Del Method Room Air 09/11/23 06:58 Results & Data ([facility]) Laboratory Results Laboratory Results - last 24 hr 09/08/23 09/10/23 14:47 07:55 25-OH Vitamin D Total 20.9 L U Marijuana THC Carboxy 1527 H Drug Screen Comment SEE NOTE Current Inpatient Medications Current Inpatient Medications: Current Inpatient Medications Acetaminophen (Acetaminophen 325 Mg Tab) 650 mg PO Q4H PRN PRN Reason: Headache or Minor Fever Stop: 10/08/23 21:25 Al Hydrox/Mg Hydrox/Simethicone (Aluminum/Magnesium Susp 30 Ml Udc) 30 ml PO Q4H PRN PRN Reason: GI Upset Stop: 10/08/23 21:25 Aripiprazole (Aripiprazole 5 Mg Tab) 5 mg PO QAM [facility] Stop: 10/10/23 08:59 Last Admin: 09/11/23 08:36 Dose: 5 mg Bismuth Subsalicylate (Bismuth Subsalicylate Liqd 236 Ml) 15 ml PO PRN PRN PRN Reason: Loose Stool Stop: 10/08/23 21:25 Cetirizine HCl (Cetirizine Hcl 10 Mg Tablet) 10 mg PO QAM [facility] Stop: 10/09/23 08:59 Last Admin: 09/11/23 08:36 Dose: 10 mg Clonidine HCl (Clonidine Hcl 0.1 Mg/24 Hr Transderm Sys) 1 patch TD Q7D@0900 [facility] Stop: 10/09/23 10:14 Last Admin: 09/09/23 11:18 Dose: 1 patch Hydroxyzine HCl (Hydroxyzine Hcl 25 Mg Tab) 50 mg PO HSZ PRN PRN Reason: Insomnia Stop: 10/08/23 21:25 Hydroxyzine HCl (Hydroxyzine Hcl 25 Mg Tab) 25 mg PO Q4H PRN PRN Reason: Anxiety Stop: 10/08/23 21:25 Lorazepam (Lorazepam 0.5 Mg Tab) 0.25 mg PO HS PRN PRN Reason: Anxiety/Insomnia Stop: 10/10/23 21:59 Magnesium Hydroxide (Magnesium Hydroxide Susp 30 Ml Udc) 30 ml PO DAILY PRN PRN Reason: Constipation Stop: 10/08/23 21:25 Mirtazapine (Mirtazapine Tab 15 Mg Tab) 15 mg PO HS [facility] Stop: 10/10/23 21:59 Last Admin: 09/10/23 21:10 Dose: 15 mg Miscellaneous (Remove Clonidine Patch) 1 each N/A CQWK [facility] Stop: 10/15/23 08:59 Miscellaneous (Check Clonidine Patch Placement) 1 each N/A QS [facility] Stop: 10/09/23 00:00 Last Admin: 09/11/23 08:35 Dose: 1 each Nicotine Polacrilex (Nicotine Polacrilex 2 Mg Gum) 1 piece MT PRN PRN PRN Reason: smoking cessation Stop: 10/08/23 21:37 Last Admin: 09/10/23 21:38 Dose: 1 piece Propranolol HCl (Propranolol Hcl 10 Mg Tab) 10 mg PO BID PRN PRN Reason: Anxiety Stop: 10/09/23 08:59 Last Admin: 09/10/23 17:15 Dose: 10 mg Sodium Chloride (Sodium Chloride 0.65% Na Soln 45 Ml ([place])) 1 - 2 sprays NA PRN PRN PRN Reason: Nasal Dryness/Congestion Stop: 10/08/23 21:25 Venlafaxine HCl (Venlafaxine Hcl Xr 75 Mg Capxr) 225 mg PO QAM [facility] Stop: 10/11/23 08:59 Last Admin: 09/11/23 08:37 Dose: 225 mg Vitamin D (Cholecalciferol 125 Mcg (5,000 Units) Tab) 125 mcg PO QAM [facility] Stop: 10/11/23 08:59 Last Admin: 09/11/23 08:36 Dose: 125 mcg Mental Health & Subst Abuse Tx Psychiatrist Name of Psychiatrist: Wen Bourne Psychiatrist's Date Of Appointment With Psychiatric Provider: 10/04/23 Time of Appointment with Psychiatrist: [id number] Therapist Name of Therapist: Wen Therapist's Date of Therapist Appointment: 10/06/23 Time of Therapist Appointment: [id number] Telecommunication Lines Repairer Name of Telecommunication Lines Repairer: None (3) Major depressive disorder with current active episode Major depression episode severity: severe Major depression recurrence: recurrent Psychotic features: without psychotic features Qualified Code(s): F33.2 - Major depressive disorder, recurrent severe without psychotic features
--- NOTE | 2023-09-12 08:57 | Psychiatric Progress Note ---
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 He was admitted on 09/08/23 20:42 on a 201 voluntary commitment. Diagnostically consistent with MDD and OCD and JEANETTE. A: Mood improving, lessening of anxiety, poor sleep last night. Tolerating medication changes, discussed IOP which he is agreeable to doing and planning for support meeting. MNPR due to trauma history Overall, I spent a total of 25 minutes on this case including meeting with the patient, reviewing the chart, nursing report, multidisciplinary team meeting, orders, and documentation. (1) Suicidal ideation: (2) Complex posttraumatic stress disorder: (3) Major depressive disorder with current active episode: (4) Cannabis use with anxiety disorder: (5) Obsessive behavior: (6) Panic attacks: Plan 09/12/2023: Continue current medications and tx plan. 09/11/2023: Continue current medications and tx plan. 09/10/2023: -Start mirtazapine 15mg HS -Increase Effexor XR to 225mg tomorrow -Continue Abilify 5mg daily -Decrease lorazepam to 0.25mg HS given limited effect -Vit D supplementation 09/09/2023:The patient was admitted to the [facility] ([facility]) on q15 min checks (behavioral with suicide precautions) for safety. The patient will participate in group, recreational, and milieu therapies and will be offered additional individual and family sessions as clinically appropriate. Increase Abilify to 5 mg daily. Continue home clonidine 0.1 mg weekly patch and Effexor 150 mg daily. Continue lorazepam 0.5 mg at bedtime for sleep and plan to discontinue prior to discharge. Lab work ordered: A1c B12 vitamin D. Administer YBOCS, international trauma questionnaire, dissociative symptoms scale, adverse child experiences questionnaire. Inventory Assets Strengths: family support, employement Needs: medication management, outpatient counseling Suicide Risk Level Suicide Risk Level: Moderate (q15 min suicide checks) (SI with plan prior to admission and depression but mood improving, denies SI, feels safe in the hospital, feels able to ask for support ) Risk Factors Assessment Male: Yes : Yes Do You Have Access To A Gun?: Yes ( secured guns) Health Problems: No Mental Health Diagnoses: Yes Substance Use Disorders: Yes Previous Attempt: Yes Family History of Suicide: No Previous Psychiatric Hospitalization: Yes Hopelessness: Yes Protective Factors Assessment Yarsani Beliefs: No : Yes Employed: Yes ([employer] -intermittent [employer]MLA) Stable Relationships: Yes Supportive Family: Yes Good Rapport with Provider: Yes Absence of Any Risk Factors Above: No Interval History Identifying Information 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 He was admitted on 09/08/23 20:42 on a 201 voluntary commitment. Chief Complaint "Good". Review of Systems Sleep Information Total Hours of Sleep: 4.5 Meal Information Percent Meal Consumed - Breakfast: 100 Percent Meal Consumed - Lunch: 75 Percent Meal Consumed - Dinner: 100 Subjective Subjective Patient was seen & assessed and interval progress reviewed with treatment team nursing and social work. Tearful at times yesterday evening in discussing his anxiety and ruminative thoughts. Only slept 4.5 hours last night. He isn't sure why he slept poorly last night but denies being overly fatigued today. Thinks he was maybe waking up due to night checks for safety. Continuing to feel that medication adjustments are helping to lessen his anxiety and improve his mood. Discussed disposition planning, he is interested in having a support meeting tomorrow. Physical Exam Psychiatric Orientation: alert and oriented x 3 Apperance: appropriately dressed and appropriately groomed Eye Contact: + fair eye contact Motor Behavior: no abnormal motor movements Speech: normal rate/rhythm/volume of speech Affect: + anxious affect Mood: + depressed mood and + anxious mood Thought Process: goal directed thought process Thought Content: + cognitive distortions and reality based without delusions Suicidal Thoughts: denies suicidal thoughts Homicidal Thoughts: denies homicidal thoughts Hallucinations: no auditory hallucinations and no visual hallucinations Insight: + fair insight Judgment: + fair judgement Vital Signs (Past 24 Hours) Last Vital Signs Temp 36.6 C 09/12/23 06:00 Pulse 91 H 09/12/23 06:08 Resp 16 09/12/23 06:00 BP 135/78 09/12/23 06:08 Pulse Ox 98 09/12/23 06:00 O2 Del Method Room Air 09/12/23 06:00 Results & Data ([facility]) Current Inpatient Medications Current Inpatient Medications: Current Inpatient Medications Acetaminophen (Acetaminophen 325 Mg Tab) 650 mg PO Q4H PRN PRN Reason: Headache or Minor Fever Stop: 10/08/23 21:25 Al Hydrox/Mg Hydrox/Simethicone (Aluminum/Magnesium Susp 30 Ml Udc) 30 ml PO Q4H PRN PRN Reason: GI Upset Stop: 10/08/23 21:25 Aripiprazole (Aripiprazole 5 Mg Tab) 5 mg PO QAM [facility] Stop: 10/10/23 08:59 Last Admin: 09/12/23 08:52 Dose: 5 mg Bismuth Subsalicylate (Bismuth Subsalicylate Liqd 236 Ml) 15 ml PO PRN PRN PRN Reason: Loose Stool Stop: 10/08/23 21:25 Cetirizine HCl (Cetirizine Hcl 10 Mg Tablet) 10 mg PO QAM [facility] Stop: 10/09/23 08:59 Last Admin: 09/12/23 08:52 Dose: 10 mg Clonidine HCl (Clonidine Hcl 0.1 Mg/24 Hr Transderm Sys) 1 patch TD Q7D@0900 [facility] Stop: 10/09/23 10:14 Last Admin: 09/09/23 11:18 Dose: 1 patch Hydroxyzine HCl (Hydroxyzine Hcl 25 Mg Tab) 50 mg PO HSZ PRN PRN Reason: Insomnia Stop: 10/08/23 21:25 Hydroxyzine HCl (Hydroxyzine Hcl 25 Mg Tab) 25 mg PO Q4H PRN PRN Reason: Anxiety Stop: 10/08/23 21:25 Lorazepam (Lorazepam 0.5 Mg Tab) 0.25 mg PO HS PRN PRN Reason: Anxiety/Insomnia Stop: 10/10/23 21:59 Magnesium Hydroxide (Magnesium Hydroxide Susp 30 Ml Udc) 30 ml PO DAILY PRN PRN Reason: Constipation Stop: 10/08/23 21:25 Mirtazapine (Mirtazapine Tab 15 Mg Tab) 15 mg PO HS [facility] Stop: 10/10/23 21:59 Last Admin: 09/11/23 20:46 Dose: 15 mg Miscellaneous (Remove Clonidine Patch) 1 each N/A CQWK [facility] Stop: 10/15/23 08:59 Miscellaneous (Check Clonidine Patch Placement) 1 each N/A QS [facility] Stop: 10/09/23 00:00 Last Admin: 09/12/23 08:52 Dose: 1 each Nicotine Polacrilex (Nicotine Polacrilex 2 Mg Gum) 1 piece MT PRN PRN PRN Reason: smoking cessation Stop: 10/08/23 21:37 Last Admin: 09/12/23 07:44 Dose: 1 piece Propranolol HCl (Propranolol Hcl 10 Mg Tab) 10 mg PO BID PRN PRN Reason: Anxiety Stop: 10/09/23 08:59 Last Admin: 09/10/23 17:15 Dose: 10 mg Sodium Chloride (Sodium Chloride 0.65% Na Soln 45 Ml ([place])) 1 - 2 sprays NA PRN PRN PRN Reason: Nasal Dryness/Congestion Stop: 10/08/23 21:25 Venlafaxine HCl (Venlafaxine Hcl Xr 75 Mg Capxr) 225 mg PO QAM [facility] Stop: 10/11/23 08:59 Last Admin: 09/12/23 08:52 Dose: 225 mg Vitamin D (Cholecalciferol 125 Mcg (5,000 Units) Tab) 125 mcg PO QAM [facility] Stop: 10/11/23 08:59 Last Admin: 09/12/23 08:52 Dose: 125 mcg Mental Health & Subst Abuse Tx Psychiatrist Name of Psychiatrist: Wen Bourne Psychiatrist's Date Of Appointment With Psychiatric Provider: 10/04/23 Time of Appointment with Psychiatrist: [id number] Therapist Name of Therapist: Wen Therapist's Date of Therapist Appointment: 10/06/23 Time of Therapist Appointment: 1045 Director Of Student Aid Name of Director Of Student Aid: None (3) Major depressive disorder with current active episode Major depression episode severity: severe Major depression recurrence: r ecurrent Psychotic features: without psychotic features Qualified Code(s): F33.2 - Major depressive disorder, recurrent severe without psychotic features
[2023-09-12] MEDS: hydrOXYzine HCl 25 MG TAB PO PRN (20:44)
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
[2023-09-15] MEDS ORDERED: cloNIDine HCL 0.1 MG/24 HR TRANSDERM SYS TD SCH (09:00)
== END 2023-09-13 13:30 | disposition home or self-care (01) | DRG 885 ==
LOC: ED 14:23 → SUATTDRO 20:42 → 3S 20:42